=== PATIENT | female | born 1945 | race American Indian/Alaskan Native ===

== ENCOUNTER 2016-11-24 11:08 | Inpatient (IN) | payer OTHER ==
[2016-11-24] MEDS ORDERED: Sodium Chloride 0.9% 1,000 ML IV STA (11:54)
[2016-11-24] MEDS ORDERED: Labetalol 5 mg/ml Inj 20ML IVP STA ×3 (11:54→16:20)
[2016-11-24] MEDS ORDERED: Labetalol 5mg/ml (4ml) IVP STA (11:59)
[2016-11-24 12:20] LABS: BASO # 0.1 K/uL (0.0-0.2); BASO % 0.8 % (0.0-2.0); EOS # 0.1 K/uL (0.0-0.7); EOS % 1.1 % (0.0-4.0); HEMATOCRIT 33.9 % (34.0-47.0); LYMPH # 1.5 K/uL (1.0-4.3); LYMPH % 24.1 % (20.0-40.0); MEAN CELL VOLUME 85.9 fl (81.0-99.0); MEAN CORPUSCULAR HEMOGLOBIN 29.3 pg (27.0-31.0); MEAN CORPUSCULAR HGB CONC 34.1 g/dL (33.0-37.0); MEAN PLATELET VOLUME 8.7 fl (7.2-11.7); MONO # 0.5 K/uL (0.0-0.8); MONO % 7.6 % (0.0-10.0); NEUT # 4.2 K/uL (1.8-7.0); NEUT % 66.4 % (50.0-75.0); NRBC % 0.2 % (0.0-0.0); RED CELL DISTRIBUTION WIDTH 13.9 % (11.5-14.5); WHITE BLOOD COUNT 6.3 K/uL (4.8-10.8)
[2016-11-24 12:27] LABS: BILIRUBIN,TOTAL 0.3 mg/dl (0.2-1.3); CALCIUM 9.8 mg/dL (8.4-10.2); MAGNESIUM 2.2 MG/DL (1.6-2.3); POTASSIUM 4.4 MMOL/L (3.6-5.0); TOTAL PROTEIN 7.8 G/DL (6.3-8.2)
[2016-11-24 12:39] LABS: TROPONIN I 0.02 ng/mL (0.00-0.120)
[2016-11-24 12:52] LABS: PARTIAL THROMBOPLASTIN TIME 29.2 Seconds (25.6-37.1)
[2016-11-24 13:02] LABS: RBC URINE 2 /hpf (0-3); URINE BILIRUBIN NEGATIVE (NEGATIVE); URINE BLOOD NEGATIVE (NEGATIVE); URINE COLOR STRAW (YELLOW); URINE GLUCOSE (UA) NEG (Normal); URINE KETONE NEGATIVE (NEGATIVE); URINE LEUKOCYTE ESTERASE NEG Leu/uL (Negative); URINE PROTEIN >=500 mg/dL (NEGATIVE); URINE UROBILINOGEN 0.2-1.0 mg/dL (0.2-1.0); WBC URINE 1 /hpf (0-5)
--- NOTE | 2016-11-24 13:15 | ED PDOC ---
HPI: Chest Pain Time Seen by Provider: 11/24/16 11:52 Chief Complaint (Nursing): Chest Pain Chief Complaint (Provider): CP History Per: Patient History/Exam Limitations: no limitations Additional Complaint(s): 71yo F in ED for eval of chest pain noted last night to epigastric area radiating to left arm and associated difficulty with breathing lasting about 30 mins intermittent and returning throughout the night. Pt states that she recently came from [facility] to for medical care. pt has hx of HTN-is taking amlodipine and ASA. PT admits to lower back pain and knee pain x 1 year, b/l lower extremity swelling x 1 year which has worsened in past couple of months according to pt. PT admits to feeling subjective fevers nightly and dizziness. Past Medical History Reviewed: Historical Data, Nursing Documentation, Vital Signs Vital Signs: Last Vital Signs Temp 63 F L 11/24/16 14:15 Pulse 100 H 11/24/16 14:15 Resp 19 11/24/16 14:15 BP 225/98 H 11/24/16 14:19 Pulse Ox 100 11/24/16 14:48 - Medical History PMH: HTN - Family History Family History: States: No Known Family Hx - Home Medications Home Medications: Ambulatory Orders Medication Instructions Recorded Aspegic (Acetylsalicylate 1 tab PO DAILY 11/24/16 Dl-Lysine) Coveram (Perindopril/Amlodipine) 1 tab PO DAILY 11/24/16 Diamicron (Gliclazide) 1 tab PO DAILY 11/24/16 - Allergies Allergies/Adverse Reactions: Allergies Allergy/AdvReac Type Severity Reaction Status Date / Time No Known Allergies Allergy Verified 11/24/16 11:38 PAUL Risk Score for UA/NSTEMI - PAUL Risk Score Age > 64: YES 3 or more CAD Risk Factors: YES Known CAD (Stenosis greater than 50%): NO Aspirin use in past 7 days: YES Severe Angina: NO Positive Cardiac Marker: NO PAUL Score: 3 Risk %: 13% Curb-65 Severity Score - CURB-65 Severity Score Confusion: No Bun >19mg/dl (>7mmol/L): No Respiratory Rate greater than/equal to 30: No Systolic BP <90 or Diastolic BP less than/equal 60mmHg: No Age >64: Yes Curb-65 Score: 1 Percentage 30-day mortality: 2.7% Wells Criteria for PE - Wells Criteria for Pulmonary Embolism Clinical Signs and Symptoms of DVT: No P.E is #1 Diagnosis, or Equally Likely: No Heart Rate >100: No Immobilization at least 3 days;Surgery previous 4 weeks: No Previous, objectively diagnosed PE or DVT: No Hemoptysis: No Malignancy w/treatment within 6 months, or palliative: No Total Score: 0 Review of Systems ROS Statement: Except As Marked, All Systems Reviewed And Found Negative Constitutional: Negative for: Weakness, Malaise Cardiovascular: Positive for: Chest Pain Respiratory: Positive for: Shortness of Breath Physical Exam - Reviewed Nursing Documentation Reviewed: Yes Vital Signs Reviewed: Yes - Physical Exam Appears: Positive for: Non-toxic, No Acute Distress Head Exam: Positive for: ATRAUMATIC, NORMAL INSPECTION, NORMOCEPHALIC Skin: Positive for: Normal Color, Warm, DRY Eye Exam: Positive for: EOMI, Normal appearance, PERRL ENT: Positive for: Normal ENT Inspection Neck: Positive for: Normal, Painless ROM, Supple Cardiovascular/Chest: Positive for: Regular Rate, Rhythm, Chest Non Tender. Negative for: Edema, Gallop, JVD, Murmur, Bradycardia, Tachycardia, Ectopy, Friction Rub, Irregularly Irregular Respiratory: Positive for: CNT, Normal Breath Sounds Gastrointestinal/Abdominal: Positive for: Normal Exam, Bowel Sounds, Soft. Negative for: Tenderness Back: Positive for: Normal Inspection Extremity: Positive for: Normal ROM Neurologic/Psych: Positive for: Alert, Oriented - Laboratory Results Result Diagrams: 11/24/16 11:54 11/24/16 11:54 - ECG O2 Sat by Pulse Oximetry: 100 - Progress ED Course And Treament: PT will get cardiac workup. placed on machine deburrer and given labletol 10mg to being and re-eval . PT given fluids. MD Nithin made aware. However- pt upon further examination states that her chest pain begins in midsternal then radiates to her back. pt will get CTA to r/o dissection considering her BP is still very elevated. PT with elevated BNP-pt will get lasix 80mg IV. Pt will be admitted to [facility]. due to elevated creatine-pt is unable to get CTA with contrast. pt will get CT of chest with/out contrast. Re-evaluation Time: 13:18 Condition: Improving,but remains with symptoms (Pt diastolic has improved however systolic is still over 200, but decreasing with labetolol) Medical Decision Making Medical Decision Making: pt to be admitted to tele -floor for Chest pain and uncontrolled BP Disposition - Clinical Impression Clinical Impression: Chest pain, Hypertensive urgency - Patient ED Disposition Is Patient to be Admitted: Yes - Disposition Disposition Time: 14:59 Condition: STABLE
--- NOTE | 2016-11-24 13:24 | RAD ---
HISTORY: difficulty with breathing COMPARISON: Comparison is made to the previous study dated 12/25/2011 TECHNIQUE: Chest PA and lateral FINDINGS: LUNGS: No evidence of new infiltrate or consolidation in the lungs. PLEURA: No significant pleural effusion identified. No pneumothorax apparent. CARDIOVASCULAR: Normal. OSSEOUS STRUCTURES: No significant abnormalities. VISUALIZED UPPER ABDOMEN: Normal. OTHER FINDINGS: None. IMPRESSION: No active disease.
--- NOTE | 2016-11-24 17:15 | CT ---
PROCEDURE: CT Chest without contrast HISTORY: elevated BP and CP COMPARISON: 02/10/2012. CT thorax. November 24, 2016. PA and lateral chest radiographs. TECHNIQUE: Contiguous axial images were obtained through the chest without intravenous contrast enhancement. Sagittal and coronal reconstructions were performed. Radiation dose (DLP): 584.25 mGy-cm. This CT exam was performed using one or more of the following dose reduction techniques: Automated exposure control, adjustment of the mA and/or kV according to patient size, and/or use of iterative reconstruction technique. FINDINGS: LUNGS: Clear lungs. Visualized airway clear. No suspicious pulmonary nodules, masses or infiltrates. MEDIASTINUM: Unremarkable thoracic aorta. No aneurysm. Normal sized heart. Dilated main pulmonary artery 3.6 cm consistent with pulmonary arterial hypertension. No lymphadenopathy. PLEURA: No pleural fluid. No pneumothorax. BONES: No fracture. No destructive lesion. UPPER ABDOMEN: Grossly unremarkable. OTHER FINDINGS: Thyroid nodule, left lobe measuring 2.5 x 2.6 cm unchanged compared to the prior CT 02/10/2012. IMPRESSION: No acute findings related to/accounting for the clinical presentation. Additional benign and/or incidental findings described above.
[2016-11-24] MEDS ORDERED: Nitroglycerin 2% 15 INCH/30 GM TUBE TOP STA (18:07)
[2016-11-24] MEDS ORDERED: Dextrose 50% SYRINGE Inj (50 ml) IV PRN (19:11)
[2016-11-24] MEDS ORDERED: Glucagon Recombinant 1 mg Inj IM PRN (19:11)
--- NOTE | 2016-11-24 20:01 | CP.PCM.HP ---
History of Present Illness - History of Present Illness History of Present Illness: 71 yr old F brought to ED by son for intermittent chest pain at rest with radiation to left arm since yesterday. Patient denies SOB, nausea, vomiting, sweating, syncope or weakness. Patient reports associated intermittent dizziness , worsening bilateral lower extremity swelling and generalized body aches for 1 yr. She arrived from [facility] 3 weeks ago where she had been residing for the last 5 yrs. She has PMHx of HTN, NIDDM, CAD, gout, chronic lower back pain, chronic knee pain and constipation. She last saw a PMD in [facility] 1 month ago and has not been compliant with her prescribed medication because it was expensive. PMD: saw a PMD in [facility] 1 month ago, Last saw Dr. To at [facility] in 02/2012 PMHx: HTN, NIDDM, CAD, gout, chronic lower back pain, chronic knee pain and constipation ObHx: , x 10 PSurgHx: hysterectomy, lumbar procedure (laminectomy?), oral surgery SocHx: denies smoking, Etoh, drugs; arrived from [facility] where she resided for past 5 yrs with her children Meds: Amlodipine 10mg PO QD, Perindopril (ACEi) 10mg PO QD, Gliclazide ( sulfonylureas) 60mg PO QD Allergies: NKDA ER Course: VSS: BP 246/116 mmHg, P 70, T 98.9F, R19, O2 sat 100% on room air EKG: NSR with RBBB, CXR: No active disease, Chest CT: Dilated main pulmonary artery 3.6cm consistent with pulmonary arterial hypertension Labs: CBC wnl, BUN/Cr 41/1.8m rest of CMP wnl, Pro-BNP 2360, coags wnl, UA= urine protein >500 Meds administered: Labetolol 20mg IVP once, Labetolol 10mg IVP x 2, NS 1L bolus , Lasix 80mg IVP once Present on Admission - Present on Admission Any Indicators Present on Admission: Yes History of DVT/PE: No History of Uncontrolled Diabetes: Yes Urinary Catheter: No Decubitus Ulcer Present: No Review of Systems - Review of Systems All systems: reviewed and no additional remarkable complaints except (for what is mentioned in the HPI) Past Patient History - Past Social History Smoking Status: Never Smoked - CARDIAC Hx Cardiac Disorders: Yes - ENDOCRINE/METABOLIC Hx Diabetes Mellitus Type 2: Yes - PSYCHIATRIC Hx Substance Use: No Meds Allergies/Adverse Reactions: Allergies Allergy/AdvReac Type Severity Reaction Status Date / Time No Known Allergies Allergy Verified 11/24/16 11:38 Physical Exam - Constitutional Appears: Well, No Acute Distress - Head Exam Head Exam: ATRAUMATIC, NORMOCEPHALIC - Eye Exam Eye Exam: EOMI, PERRL - ENT Exam ENT Exam: Mucous Membranes Moist - Neck Exam Neck exam: Positive for: Full Rom. Negative for: Lymphadenopathy, Thyromegaly - Respiratory Exam Respiratory Exam: Clear to Auscultation Bilateral, NORMAL BREATHING PATTERN. absent: Rales, Rhonchi, Wheezes - Cardiovascular Exam Cardiovascular Exam: REGULAR RHYTHM, JVD, +S1, +S2. absent: Gallop, Rubs - GI/Abdominal Exam GI & Abdominal Exam: Normal Bowel Sounds, Soft (obese), Tenderness (mild diffuse ). absent: Distended - Extremities Exam Extremities exam: Positive for: full ROM, joint swelling (bilateral ankle swelling, darker skin discoloration consistent with chronic venous stasis), pedal edema (+ 1 up to knees). Negative for: calf tenderness, tenderness - Back Exam Back exam: absent: CVA tenderness (L), CVA tenderness (R) - Psychiatric Exam Psychiatric exam: Normal Affect, Normal Mood - Skin Skin Exam: Dry, Intact, Warm Results - Vital Signs Recent Vital Signs: Last Vital Signs Temp 97.8 F 11/24/16 18:12 Pulse 63 11/24/16 18:12 Resp 20 11/24/16 18:12 BP 217/73 H 11/24/16 18:12 Pulse Ox 99 11/24/16 18:12 - Labs Result Diagrams: 11/24/16 11:54 11/24/16 11:54 Assessment & Plan - Assessment and Plan (Free Text) Assessment: 71 yr old F admitted for chest pain and elevated BP. EKG NSR with RBBB, CXR wnl , ED tx labetolol IVP x 3, NS bolus, lasix 80mg IV once. She is noncompliant with her prescribed medication and has PMHx of HTN, NIDDM, CAD, gout, chronic lower back pain, chronic knee pain and constipation. She last saw a PMD in [place] 1 month ago. Patients is symptomatically stable , elevated BP has persisted. 1. Uncontrolled Hypertension -likely secondary to medication noncompliance -continue with home med: Amlodipine 10mg PO QD -start Clonidine 0.2 mg PO BID -home med ACEi held for now-as BUN/Cr was 41/1.8 with GFR 33 consistent with stage 3 CKD -monitor BP 2. Chest pain -acute, stable -likely secondary to uncontrolled HTN vs CHF -EKG: NSR with RBBB -Troponin negative x 1, proBNP 2360, Chest CT consistent with pulmonary arterial HTN (see full report) -CXR wnl -f/u serial troponins, echo -Cardiology consult appreciated-Dr. Xavier 3. Acute vs Chronic Kidney Disease -BUN/Cr was 41/1.8 with GFR 33 consistent with stage 3 CKD -patient has normal urine output -home med ACEi held for now -f/u BUN/Cr -will consider Nephrology consult 4. NIDDM -uncontrolled -Humulin SC ACHS moderate dose protocol -Hypoglycemia protocol -home med held (sulfonylurea -Glicazide 60mg PO QD) -Moderate carbohydrate/heart healthy diet -f/u HbA1c, lipid panel 5. DVT prophylaxis -Lovenox 30mg SC QD - Date & Time Date: 11/24/16 Time: 16:00
[2016-11-24] MEDS ORDERED: Pneumococcal 23-Valent Vaccine IM ONE (20:15)
[2016-11-24] MEDS: Insulin Regular 100 units/ml SC SCH (22:00)
[2016-11-25 07:03] LABS: HEMATOCRIT 31.9 % (34.0-47.0); MEAN CORPUSCULAR HEMOGLOBIN 28.7 pg (27.0-31.0); RED CELL DISTRIBUTION WIDTH 13.8 % (11.5-14.5)
[2016-11-25 07:49] LABS: CALCIUM 9.3 mg/dL (8.4-10.2); POTASSIUM 3.6 MMOL/L (3.6-5.0)
[2016-11-25] MEDS: Insulin Regular 100 units/ml SC SCH ×4 (09:02→21:40)
[2016-11-25] MEDS: Enoxaparin 30 mg Syringe SC SCH (09:03)
--- NOTE | 2016-11-25 11:07 | CP.PCM.PN ---
Subjective - Date & Time of Evaluation Date of Evaluation: 11/25/16 Time of Evaluation: 07:45 - Subjective Subjective: [employer] used: ID # [id number] dialect : Bengali ([place]) Patient seen and examined at bedside, laying in bed in no acute distress. Patient reports persistent bilateral lower extremity pain 4/10 pain scale. Chest pain has resolved, denies SOB, has normal urine and stool output. Denies dizziness. Reports lower extremity weakness and states she feels like her legs are going to give out every time she attempts to ambulate. Patient has no other concerns or complaints at this time. Objective - Vital Signs/Intake and Output Vital Signs (last 24 hours): Temp Pulse Resp BP Pulse Ox 97.9 F 61 18 151/78 H 99 11/25/16 09:00 11/25/16 09:02 11/25/16 09:00 11/25/16 09:02 11/25/16 09:00 Intake and Output: 11/25/16 11/25/16 06:59 18:59 Intake Total 200 Balance 200 - Medications Medications: Current Medications Amlodipine Besylate (Norvasc) 10 mg PO DAILY [facility] Last Admin: 11/25/16 09:02 Dose: 10 mg Atorvastatin Calcium (Lipitor) 80 mg PO DAILY [facility] Clonidine HCl (Catapres) 0.2 mg PO BID [facility] Last Admin: 11/25/16 09:02 Dose: 0.2 mg Dextrose (Dextrose 50% Inj) 0 ml IV STAT PRN; Protocol PRN Reason: Hyglycemia Protocol Dextrose (Glutose 15) 0 gm PO ONCE PRN; Protocol PRN Reason: Hypoglycemia Protocol Docusate Sodium (Colace) 100 mg PO BID PRN PRN Reason: Constipation Last Admin: 11/25/16 09:01 Dose: 100 mg Enoxaparin Sodium (Lovenox) 30 mg SC DAILY [facility] PRN Reason: Protocol Last Admin: 11/25/16 09:03 Dose: 30 mg Glucagon (Glucagen Diagnostic Kit) 0 mg IM STAT PRN; Protocol PRN Reason: Hypoglycemia Protocol Insulin Human Regular (Humulin R) 0 units SC ACHS [facility] PRN Reason: Protocol Last Admin: 11/25/16 09:02 Dose: 2 unit Lidocaine (Lidoderm) 2 ea TD DAILY [facility] - Labs Labs: 11/25/16 06:25 11/25/16 06:25 PT 10.3 Seconds (9.8-13.1) 11/24/16 12:13 INR 0.9 (0.9-1.2) 11/24/16 12:13 APTT 29.2 Seconds (25.6-37.1) 11/24/16 12:13 - Constitutional Appears: Well, No Acute Distress - Head Exam Head Exam: ATRAUMATIC, NORMOCEPHALIC - Eye Exam Eye Exam: EOMI, PERRL - ENT Exam ENT Exam: Mucous Membranes Moist - Neck Exam Neck Exam: Full ROM. absent: Lymphadenopathy - Respiratory Exam Respiratory Exam: Clear to Ausculation Bilateral, NORMAL BREATHING PATTERN. absent: Rales, Rhonchi - Cardiovascular Exam Cardiovascular Exam: REGULAR RHYTHM, +S1, +S2 - GI/Abdominal Exam GI & Abdominal Exam: Soft (obese), Normal Bowel Sounds. absent: Tenderness - Extremities Exam Extremities Exam: Pedal Edema (bilateral LE non-pitting edema with skin changes consistent with chronic venous insufficiency), Tenderness (bilateral lower extremity tenderness) - Back Exam Back Exam: absent: CVA tenderness (L), CVA tenderness (R) - Neurological Exam Neurological Exam: Alert, Awake, CN II-XII Intact, Oriented x3 - Psychiatric Exam Psychiatric exam: Normal Affect, Normal Mood - Skin Skin Exam: Dry, Intact, Warm Assessment and Plan - Assessment and Plan (Free Text) Assessment: 71 yr old F admitted for chest pain and elevated BP. EKG NSR with RBBB, CXR wnl , ED tx labetolol IVP x 3, NS bolus, lasix 80mg IV once. She is noncompliant with her prescribed medication and has PMHx of HTN, NIDDM, CAD, gout, chronic lower back pain, chronic knee pain and constipation. Patients is symptomatically stable , elevated BP has improved, has bilateral lower extremity swelling and pain persists, awaiting echo and PT eval. 1. Uncontrolled Hypertension -improved -likely secondary to medication noncompliance with possible CHF -continue with home med: Amlodipine 10mg PO QD -continue with Clonidine 0.2 mg PO BID -home med ACEi held for now-as BUN/Cr was 41/1.8 with GFR 33 consistent with stage 3 CKD -monitor BP 2. Chest pain -resolved -likely secondary to uncontrolled HTN with possible CHF -EKG: NSR with RBBB -Troponin negative x 2, proBNP 2360, Chest CT consistent with pulmonary arterial HTN (see full report) -CXR wnl -f/u Echo -Cardiology consult appreciated-Dr. Xavier 3. Acute vs Chronic Kidney Disease -stable, BUN/Cr was 35/1.7 this AM (from 41/1.8 with GFR 33 consistent with stage 3 CKD yesterday) -home med ACEi held for now -f/u BUN/Cr, SPEP, UPEP, renal US 4. Anemia -stable, H/H 10.5/31.9 -likely secondary to anemia of chronic disease (CKD) vs multiple myeloma vs GI blood loss -f/u Stool of occult blood, ESR, hemoglobinopathy, SPEP, UPEP 5. Bilateral knee pain and LE weakness -chronic, worsening -f/u b/l knee xray, PT eval -Lidoderm patch 6. NIDDM -uncontrolled -Humulin SC ACHS moderate dose protocol -Hypoglycemia protocol -home med held (sulfonylurea -Glicazide 60mg PO QD) -Moderate carbohydrate/heart healthy diet -lipids: Tri 162/chol 312/LDL 178/ HDL 47 ;ASCVD risk 50.9%, start Atorvastatin 80mg PO QD -f/u HbA1c 7. DVT prophylaxis -Lovenox 30mg SC QD
[2016-11-25] MEDS: Lidocaine 5% Patch TD SCH (13:26)
--- NOTE | 2016-11-25 15:33 | CARD ---
APPROVED REPORT EKG Measurement Heart [id number] <Conclusion> Normal sinus rhythm Right bundle branch block Abnormal ECG
--- NOTE | 2016-11-25 15:44 | RAD ---
PROCEDURE: Bilateral Knee Radiographs. HISTORY: r/o osteoarthritis, bilateral knee pain COMPARISON: None. FINDINGS: BONES: Right Knee: No acute fracture. Proliferative hypertrophic changes emanating from the femoral condyle and tibial plateau Left Knee: No acute fracture. Proliferative hypertrophic changes emanating from the femoral condyle and tibial plateau JOINTS: Right Knee: Mild degenerative changes Left knee: Degenerative changes more pronounced compared to the right side. Primarily affecting medial compartment and patellofemoral joint. SOFT TISSUES: Right Knee: Normal. Left Knee: Normal. JOINT EFFUSION: Right Knee: None. Left Knee: None. OTHER FINDINGS: None. IMPRESSION: Mild-moderate degenerative change. No acute findings
--- NOTE | 2016-11-25 17:45 | CON ---
DATE: 11/25/2016 REASON FOR CONSULTATION: Uncontrolled hypertension and congestive heart failure. The history was ta errol from the patient via her son who translated to me. The patient speaks local [place] dialect. HISTORY OF PRESENT ILLNESS: The patient is a 71-year-old with [place] female originally from [facility] who has history of hypertension and who arrived recently from [facility] upon on direct flight adlaid t took 7 hours that 3 weeks ago. The patient presented to the Emergency Room yesterday because of ch est discomfort in right epigastric area radiating to the left arm associated with shortness of breath . The patient has a history of hypertension and, according to the Emergency Room evaluation, the pat kyree was taking amlodipine and aspirin; however, according to her son, the patient is currently takin g no medications. SOCIAL HISTORY: The patient is a nonsmoker, nondrinker. MEDICATIONS: Clonidine 0.1 mg twice a day, Lipitor 80 mg once a day, Lovenox 30 mg subcutaneous once a day, Norvasc 10 mg once a day. REVIEW OF SYSTEMS: No nausea or vomiting, no fever or chills. PHYSICAL EXAMINATION: GENERAL: The patient is an elderly female who does not appear to be in any distress. VITAL SIGNS: Blood pressure 151/78, heart rate 61, temperature 97.9, respiration 18. HEENT: Normocephalic. NECK: No JVD. CHEST: Clear. HEART: S1, S2 regular. EXTREMITIES: 1+ nonpitting edema. LABORATORY DATA: Hemoglobin and hematocrit are 10.5 and 31.9. White count and platelet count are wi thin normal limits. SMA-7: Sodium 140, potassium 3.6, chloride 103, CO2 29, glucose 174, BUN 35, cr eatinine 1.7. PT, PTT within normal limits. EKG revealed sinus rhythm at a rate of 70. Right bundl e branch block. I did briefly review the transthoracic echocardiographic study which revealed moderate to severe conc entric left ventricular hypertrophy with normal systolic function and reduced diastolic compliance. ASSESSMENT: 1. Chest pain. Myocardial infarction is ruled out. Two sets of troponins are negative. 2. Uncontrolled hypertension. 3. Rule out deep venous thrombosis or pulmonary embolism in view of the patient's most recent [place] flight that lasted about 7 hours. RECOMMENDATIONS: Continue Lipitor, subcutaneous Lovenox, Norvasc and clonidine. Start aspirin 81 mg once a day. Obtain venous Doppler of the lower extremities. Obtain serum D-dimer and if elevated, proceed with CT angio of the chest. Sandoval Xavier MD cc: [id number] TT: 11/25/2016 17:44:43 Confirmation # [id number] Dictation # [id number] mn
--- NOTE | 2016-11-25 18:22 | CARD ---
APPROVED REPORT EXAM: Two-dimensional and M-mode echocardiogram with Doppler and color Doppler. Other Information Quality : GoodRhythm : NSR INDICATION Congestive Heart Failure 2D DIMENSIONS IVSd1.68 (0.7-1.1cm)LVDd3.78 (3.9-5.9cm) LVOT Diameter1.59 (1.8-2.4cm)PWd1.06 (0.7-1.1cm) IVSs1.47 (0.8-1.2cm)LVDs2.87 (2.5-4.0cm) FS (%) 24.0 %PWs1.08 (0.8-1.2cm) M-Mode DIMENSIONS Left Atrium (MM)4.97 (2.5-4.0cm)IVSd1.18 (0.7-1.1cm) Aortic Root2.88 (2.2-3.7cm)LVDd4.47 (4.0-5.6cm) Aortic Cusp Exc.1.82 (1.5-2.0cm)PWd1.03 (0.7-1.1cm) IVSs1.82 cmFS (%) 47 % LVDs2.35 (2.0-3.8cm)PWs1.71 cm Mitral Valve MV E Wuebtuji85.9cm/sMV DECEL [id number] A Yfpdukkk590.2cm/s MV EEZ12diG/A ratio0.6MVA (PHT)2.23cm2 TDI Lateral E' Peak V3.99cm/sMedial E' Peak V2.77cm/sE/Lateral E'14.8 E/Medial E'21.3 Pulmonary Valve PV Peak Uewhcmhx766.6cm/s LEFT VENTRICLE The left ventricle is normal size. There is at least moderate concentric left ventricular hypertrophy on the 2D study. The left ventricular function is normal. The left ventricular ejection fraction is - 70%. There is normal LV segmental wall motion. Transmitral Doppler flow pattern is Grade I-abnormal relaxation pattern. No left ventricle thrombus noted on this study. There is no ventricular septal defect visualized. There is no left ventricular aneurysm. There is no mass noted in the left ventricle. RIGHT VENTRICLE The right ventricle is normal size. The right ventricle is mildly hypertrophied. The right ventricular systolic function is normal. ATRIA The left atrium is mildly dilated. There is no thrombus suspected in the left atrium. The right atrium size is normal. The interatrial septum is intact with no evidence for an atrial septal defect. AORTIC VALVE The aortic valve is normal in structure and function. There is very trivial aortic regurgitation. There is no aortic valvular stenosis. MITRAL VALVE The mitral valve is normal in structure and function. There is no evidence of mitral valve prolapse. There is no mitral valve stenosis. There is no mitral valve regurgitation noted. TRICUSPID VALVE The tricuspid valve is normal in structure and function. There is no tricuspid valve regurgitation noted. There is no tricuspid valve prolapse or vegetation. There is no tricuspid valve stenosis. PULMONIC VALVE The pulmonary valve is normal in structure and function. There is no pulmonic valvular regurgitation. GREAT VESSELS The aortic root is normal in size. The IVC was not visualized. PERICARDIAL EFFUSION The pericardium appears normal. There is no pleural effusion. <Conclusion> The left ventricle is normal size. There is at least moderate concentric left ventricular hypertrophy on the 2D study. The left ventricular function is normal. The left ventricular ejection fraction is - 70%. The left atrium is mildly dilated. The aortic, mitral and tricuspid valves are normal. There is very trivial aortic regurgitation.
--- NOTE | 2016-11-25 18:29 | US ---
PROCEDURE: Bilateral lower extremity venous duplex Doppler. HISTORY: r/o DVT COMPARISON: None available. TECHNIQUE: Bilateral common femoral, superficial femoral, popliteal and posterior tibial veins were evaluated. Flow was assessed with color Doppler, compressibility, assessment of phasic flow and augmentation response. FINDINGS: COMMON FEMORAL VEIN: Right CFV: Unremarkable. Left CFV: Unremarkable. SUPERFICIAL FEMORAL VEIN: Right SFV: Unremarkable. Left SFV: Unremarkable. POPLITEAL VEIN: Right Popliteal: Unremarkable. Left Popliteal: Unremarkable. POSTERIOR TIBIAL VEIN: Right PTV: Unremarkable. Left PTV: Unremarkable. OTHER FINDINGS: Left popliteal fossa cystic structure measures 4.3 x 0.8 x 1.5 centimeter likely represent Leone's cyst IMPRESSION: No evidence of deep venous thrombosis. Left popliteal fossa cystic structure likely represent Leone cyst measures 4.3 x 0.8 x 1.5 centimeter.
--- NOTE | 2016-11-25 18:52 | US ---
PROCEDURE: Ultrasound of the Kidneys HISTORY: r/o hydronephrosis COMPARISON: None available. TECHNIQUE: Sonogram of the kidneys. FINDINGS: RIGHT KIDNEY: Measures: 8.1 x 3.8 x 3.4 cm. The right kidney is echogenic. No stone, solid mass lesion or hydronephrosis visualized. LEFT KIDNEY: Measures: 10.4 x 3.8 x 4.8 cm. The left kidney is also echogenic. There is cyst seen at the upper pole of the left kidney measures 2.6 x 2.2 x 2.2 centimeter. No stone, solid mass lesion or hydronephrosis visualized. OTHER FINDINGS: None. IMPRESSION: No evidence of hydronephrosis. Echogenic kidneys suggestive of medical renal disease. 2.6 centimeter cyst at the upper pole of the left kidney.
--- NOTE | 2016-11-26 06:39 | CP.PCM.PN ---
Subjective - Date & Time of Evaluation Date of Evaluation: 11/26/16 Time of Evaluation: 10:05 - Subjective Subjective: Patient seen and examined at bedside. Denies chest pain, SOB, dizziness. Bilateral lower extremity pain persists, she has normal urine and stool output. Has no concerns or complaints at this time. Objective - Vital Signs/Intake and Output Vital Signs (last 24 hours): Temp Pulse Resp BP Pulse Ox 98.1 F 70 18 172/91 H 99 11/26/16 04:59 11/26/16 04:59 11/26/16 04:59 11/26/16 04:59 11/26/16 04:59 Intake and Output: 11/25/16 11/26/16 18:59 06:59 Intake Total 1940 Balance 1940 - Medications Medications: Current Medications Amlodipine Besylate (Norvasc) 10 mg PO DAILY [facility] Last Admin: 11/25/16 09:02 Dose: 10 mg Aspirin (Aspirin Chewable) 81 mg PO DAILY [facility] Last Admin: 11/25/16 13:25 Dose: 81 mg Atorvastatin Calcium (Lipitor) 80 mg PO DAILY [facility] Last Admin: 11/25/16 13:25 Dose: 80 mg Clonidine HCl (Catapres) 0.2 mg PO BID [facility] Last Admin: 11/25/16 16:35 Dose: 0.2 mg Dextrose (Dextrose 50% Inj) 0 ml IV STAT PRN; Protocol PRN Reason: Hyglycemia Protocol Dextrose (Glutose 15) 0 gm PO ONCE PRN; Protocol PRN Reason: Hypoglycemia Protocol Docusate Sodium (Colace) 100 mg PO BID PRN PRN Reason: Constipation Last Admin: 11/25/16 09:01 Dose: 100 mg Enoxaparin Sodium (Lovenox) 30 mg SC DAILY [facility] PRN Reason: Protocol Last Admin: 11/25/16 09:03 Dose: 30 mg Glucagon (Glucagen Diagnostic Kit) 0 mg IM STAT PRN; Protocol PRN Reason: Hypoglycemia Protocol Insulin Human Regular (Humulin R) 0 units SC ACHS [facility] PRN Reason: Protocol Last Admin: 11/25/16 21:40 Dose: Not Given Lidocaine (Lidoderm) 2 ea TD DAILY [facility] Last Admin: 11/25/16 13:26 Dose: 2 ea - Labs Labs: 11/25/16 06:25 11/25/16 06:25 PT 10.3 Seconds (9.8-13.1) 11/24/16 12:13 INR 0.9 (0.9-1.2) 11/24/16 12:13 APTT 29.2 Seconds (25.6-37.1) 11/24/16 12:13 - Constitutional Appears: Well, No Acute Distress - Head Exam Head Exam: ATRAUMATIC, NORMOCEPHALIC - Eye Exam Eye Exam: EOMI, PERRL - ENT Exam ENT Exam: Mucous Membranes Moist - Neck Exam Neck Exam: Full ROM. absent: Lymphadenopathy - Respiratory Exam Respiratory Exam: Clear to Ausculation Bilateral, NORMAL BREATHING PATTERN - Cardiovascular Exam Cardiovascular Exam: REGULAR RHYTHM, +S1, +S2 - GI/Abdominal Exam GI & Abdominal Exam: Soft (obese), Normal Bowel Sounds. absent: Tenderness - Extremities Exam Extremities Exam: Full ROM, Pedal Edema (non pitting, with distal skin discoloration consistent with chronic venous insufficiency), Tenderness ( bilateral LE , worse on left knee circumferentially) - Back Exam Back Exam: absent: CVA tenderness (L), CVA tenderness (R) - Neurological Exam Neurological Exam: Alert, Awake, CN II-XII Intact - Psychiatric Exam Psychiatric exam: Normal Affect, Normal Mood - Skin Skin Exam: Dry, Intact Assessment and Plan - Assessment and Plan (Free Text) Assessment: 71 yr old F admitted for chest pain and elevated BP, with PMHx of HTN, NIDDM, CAD, gout, chronic lower back pain, chronic knee pain and constipation. Patients is symptomatically stable , BP remained elevated, bilateral lower extremity swelling and pain persists, Cardiology on [id number] elevated; V/Q scan recommended , PT will evaluate after VQ scan is done. 1. Uncontrolled Hypertension -remains elevated, stable -likely secondary to medication noncompliance -continue with home med: Amlodipine 10mg PO QD -continue with Clonidine 0.2 mg PO BID -home med ACEi held for now-as BUN/Cr is 33/1.8 with GFR 33 consistent with stage 3 CKD -monitor BP 2. Chest pain -resolved -likely secondary to uncontrolled HTN -EKG: NSR with RBBB -Troponin negative x 2, proBNP 2360, Chest CT consistent with pulmonary arterial HTN (see full report) -CXR wnl -Echo: normal LV size, LVEF 70% -D-Dimer 0.87 -Cardiology consult appreciated-Dr. Xavier: D-dimer, if elevated VQ scan, Duplex LE, continue with Lipitor, Lovenox SC, Norvasc, Clonidine, ASA 3. Chronic Kidney Disease stage 3B (GFR 30-44 mL/min) -stable, BUN/Cr 33/1.8 GFR 33 this AM, consistent with Stage 3B CKD -home med ACEi held for now -f/u BUN/Cr, SPEP, UPEP -Renal US: No hydronephrosis, echogenic kidneys suggestive of medical renal disease (see full report) 4. Anemia -stable, H/H 10.6/32.2 -likely secondary to anemia of chronic disease (CKD) vs multiple myeloma vs GI blood loss -f/u Stool of occult blood, hemoglobinopathy, SPEP, UPEP 5. Bilateral knee pain and LE weakness -chronic, worsening -b/l knee xray: mild-moderate degenerative changes, no acute findings -b/l LE duplex: left popliteal fossa cystic structure likely represents Bakers Cyst measuring 4.3x0.8x1.5 -awaiting PT eval: will be done after V/Q scan -Pain management: Lidoderm patch, Tylenol prn, tramadol prn, will consider steroid joint injection to left knee 6. NIDDM -uncontrolled, HbA1c 7.0 -Humulin SC ACHS moderate dose protocol -Hypoglycemia protocol -home med held (sulfonylurea -Glicazide 60mg PO QD) -Moderate carbohydrate/heart healthy diet -lipids: Tri 162/chol 312/LDL 178/ HDL 47 ;ASCVD risk 50.9%, start Atorvastatin 80mg PO QD -will consider PO meds 7. DVT prophylaxis -Lovenox 30mg SC QD
[2016-11-26 06:47] LABS: HEMATOCRIT 32.2 % (34.0-47.0); MEAN CELL VOLUME 87.2 fl (81.0-99.0); MEAN CORPUSCULAR HEMOGLOBIN 28.7 pg (27.0-31.0); MEAN CORPUSCULAR HGB CONC 32.9 g/dL (33.0-37.0); RED CELL DISTRIBUTION WIDTH 13.7 % (11.5-14.5)
[2016-11-26 06:53] LABS: CALCIUM 9.3 mg/dL (8.4-10.2); POTASSIUM 3.8 MMOL/L (3.6-5.0)
[2016-11-26] MEDS: Insulin Regular 100 units/ml SC SCH ×4 (08:30→21:55)
[2016-11-26] MEDS: Lidocaine 5% Patch TD SCH (08:32)
[2016-11-26] MEDS: Enoxaparin 30 mg Syringe SC SCH (08:34)
--- NOTE | 2016-11-26 16:02 | PN ---
DATE: 11/26/2016 There is no reported chest pain or ventricular arrhythmia. PHYSICAL EXAMINATION: VITAL SIGNS: Blood pressure 175/91, heart rate 59, temperature 97.7, respirations 18. HEENT: Pale conjunctivae. CHEST: Clear. HEART: S1, S2 regular. EXTREMITIES: 1+ pitting edema. LABORATORIES: Hemoglobin and hematocrit 10.6 and 32.2. White count and platelet count are within no rmal limit. Today's BUN and creatinine are 33 and 1.8 respectively. Glucose of 157. Venous Doppler of the lower extremities, no evidence of DVT, left popliteal ____ cystic structure likely represents a Leone cyst. Ventilation-perfusion scan is performed, but the report is still pending. Official e chocardiograph study reported ejection fraction in the range of 70%, moderate concentric LVH, very tr ivial aortic regurgitation. ASSESSMENT: 1. Chest pain. Myocardial infarction is ruled out. 2. Hypertension. 3. Chronic renal insufficiency. RECOMMENDATIONS: Continue current aspirin, clonidine, Lipitor, subcutaneous Lovenox, and Norvasc. I will follow up ventilation-perfusion scan and if negative, no further cardiac workup will be indicat ed. Sandoval Xavier MD cc: [id number] TT: 11/26/2016 16:01:39 Confirmation # [id number] Dictation # [id number]
--- NOTE | 2016-11-26 16:18 | NM ---
COMPARISON: November 25, 2016. Lower extremity duplex venous sonography November 24, 2016 CT thorax TECHNIQUE: 36.7 mCi technetium 99-m DTPA aerosol. 5.9 mCI technetium 99-m MAA administered intravenously. FINDINGS: VENTILATION COMPONENT: Normal. PERFUSION COMPONENT: Heterogeneous distribution of radionuclide. No geographic, segmental, lobar abnormalities apparent on the present examination. IMPRESSION: Low probability ventilation perfusion scan for pulmonary embolism.
[2016-11-26] MEDS ORDERED: Lidocaine 2% Inj (20ml) ONE (17:20)
[2016-11-26] MEDS: Lidocaine 2% Inj (20ml) IJ ONE ×2 (18:02→19:14)
[2016-11-26] MEDS: Triamcinolone Acetonide 40 mg/mL Inj IM ONE ×2 (18:02→19:14)
--- NOTE | 2016-11-26 22:58 | PCM.PROC ---
Procedures Attestation:: I certify that I have explained the specified Operation(s) or Procedure(s), risks, benefits and reasonable alternatives to the Patient and/or other person responsible. The opportunity was given to ask questions and all questions answered - Joint Aspiration/Injection Joint #1 Consent Obtained: Written Consent Time Out Performed: Yes Side of Body: Left Skin Prep: Chlorprep Local Anesthesia Used: Lidocaine 2% Amount of Anesthesia Used: 4 Needle Size Used: 22 G Medication Injected: Triamcinolone Acetate Amout of Medication Injected: 1 Patient Tolorated Procedure: Well Complications: None
[2016-11-27 02:49] LABS: HEMATOCRIT 31.6 % (35.0-45.0); HEMOGLOBIN 10.3 g/dL (11.7-15.5); RDW 13.9 % (11.0-15.0)
[2016-11-27] MEDS: Insulin Regular 100 units/ml SC SCH ×4 (06:54→23:40)
[2016-11-27] MEDS: GlipiZIDE 10 mg SR Tab PO SCH (08:28)
[2016-11-27] MEDS: Enoxaparin 30 mg Syringe SC SCH (08:29)
[2016-11-27] MEDS: Lidocaine 5% Patch TD SCH (08:29)
--- NOTE | 2016-11-27 10:44 | CP.PCM.PN ---
Subjective - Date & Time of Evaluation Date of Evaluation: 11/27/16 Time of Evaluation: 08:30 - Subjective Subjective: Patient seen and examined at bedside, laying in bed in no acute distress. Reports her left lower extremity pain has improved. Had not had a bowel movement since yesterday, has normal urine output. Is tolerating PO diet, had a headache last night that resolved, has mild intermittent periorbital pressure. No other concerns or complaints at this time. Objective - Vital Signs/Intake and Output Vital Signs (last 24 hours): Temp Pulse Resp BP Pulse Ox 97.6 F 68 20 178/79 H 100 11/27/16 08:00 11/27/16 10:28 11/27/16 08:00 11/27/16 10:28 11/27/16 08:00 Intake and Output: 11/27/16 11/27/16 06:59 18:59 Intake Total 1650 Balance 1650 - Medications Medications: Current Medications Acetaminophen (Tylenol 325mg Tab) 650 mg PO Q6 PRN PRN Reason: Pain, Mild (1-3) Last Admin: 11/27/16 08:49 Dose: 650 mg Amlodipine Besylate (Norvasc) 10 mg PO DAILY [facility] Last Admin: 11/27/16 08:30 Dose: 10 mg Aspirin (Aspirin Chewable) 81 mg PO DAILY [facility] Last Admin: 11/27/16 08:28 Dose: 81 mg Atorvastatin Calcium (Lipitor) 80 mg PO DAILY [facility] Last Admin: 11/27/16 08:29 Dose: 80 mg Clonidine HCl (Catapres) 0.2 mg PO BID [facility] Dextrose (Dextrose 50% Inj) 0 ml IV STAT PRN; Protocol PRN Reason: Hyglycemia Protocol Dextrose (Glutose 15) 0 gm PO ONCE PRN; Protocol PRN Reason: Hypoglycemia Protocol Docusate Sodium (Colace) 100 mg PO BID PRN PRN Reason: Constipation Last Admin: 11/25/16 09:01 Dose: 100 mg Enoxaparin Sodium (Lovenox) 30 mg SC DAILY [facility] PRN Reason: Protocol Last Admin: 11/27/16 08:29 Dose: 30 mg Glipizide (Glucotrol Xl) 10 mg PO BRK [facility] Last Admin: 11/27/16 08:28 Dose: 10 mg Glucagon (Glucagen Diagnostic Kit) 0 mg IM STAT PRN; Protocol PRN Reason: Hypoglycemia Protocol Hydralazine HCl (Apresoline) 10 mg PO QID [facility] Last Admin: 11/27/16 09:47 Dose: 10 mg Insulin Human Regular (Humulin R) 0 units SC ACHS [facility] PRN Reason: Protocol Last Admin: 11/27/16 06:54 Dose: 3 unit Lidocaine (Lidoderm) 2 ea TD DAILY [facility] Last Admin: 11/27/16 08:29 Dose: 2 ea Tramadol HCl (Ultram) 50 mg PO Q6 PRN PRN Reason: Pain, moderate (4-7) - Labs Labs: 11/26/16 05:45 11/26/16 05:45 PT 10.3 Seconds (9.8-13.1) 11/24/16 12:13 INR 0.9 (0.9-1.2) 11/24/16 12:13 APTT 29.2 Seconds (25.6-37.1) 11/24/16 12:13 - Constitutional Appears: Well, No Acute Distress - Head Exam Head Exam: ATRAUMATIC, NORMOCEPHALIC - Eye Exam Eye Exam: EOMI, PERRL - ENT Exam ENT Exam: Mucous Membranes Moist - Neck Exam Neck Exam: Full ROM. absent: Lymphadenopathy - Respiratory Exam Respiratory Exam: Clear to Ausculation Bilateral, NORMAL BREATHING PATTERN - Cardiovascular Exam Cardiovascular Exam: REGULAR RHYTHM, +S1, +S2 - GI/Abdominal Exam GI & Abdominal Exam: Soft (obese). absent: Distended, Tenderness - Extremities Exam Extremities Exam: Full ROM, Tenderness (b/l LE, improved on left since joint injection yesterday) - Back Exam Back Exam: absent: CVA tenderness (L), CVA tenderness (R) - Neurological Exam Neurological Exam: Alert, Awake, CN II-XII Intact, Oriented x3 - Psychiatric Exam Psychiatric exam: Normal Affect, Normal Mood - Skin Skin Exam: Dry, Intact, Warm Assessment and Plan - Assessment and Plan (Free Text) Assessment: 71 yr old F admitted for chest pain and elevated BP, with PMHx of HTN, NIDDM, CAD, gout, chronic lower back pain, chronic knee pain and constipation. Patients BP remains elevated, bilateral lower extremity swelling and pain has improved but persists, Cardiology on [id number] elevated; V/Q scan demonstrated low probability for PE, PT will evaluate. 1. Uncontrolled Hypertension -remains elevated, stable -likely secondary to medication noncompliance -continue with home med: Amlodipine 10mg PO QD -continue with Clonidine 0.2 mg PO BID -start Hydralazine 10mg PO QID -home med ACEi held for now-as BUN/Cr is 33/1.8 with GFR 33 consistent with stage 3 CKD -monitor BP 2. Chest pain -resolved -likely secondary to uncontrolled HTN -EKG: NSR with RBBB -Troponin negative x 2, proBNP 2360, Chest CT consistent with pulmonary arterial HTN (see full report) -CXR wnl -Echo: normal LV size, LVEF 70% -D-Dimer 0.87, VQ scan low probability for PE -Cardiology consult appreciated-Dr. Xavier: D-dimer, VQ scan low probability for PE, continue with Lipitor, Lovenox SC, Norvasc, Clonidine, ASA 3. Chronic Kidney Disease stage 3B (GFR 30-44 mL/min) -stable, BUN/Cr 33/1.8 GFR 33 this AM, consistent with Stage 3B CKD -home med ACEi held for now -f/u BUN/Cr, SPEP, UPEP -Renal US: No hydronephrosis, echogenic kidneys suggestive of medical renal disease (see full report) 4. Anemia -stable, H/H 10.6/32.2 -likely secondary to anemia of chronic disease (CKD) vs multiple myeloma vs GI blood loss -f/u Stool of occult blood, hemoglobinopathy, SPEP, UPEP 5. Bilateral knee pain and LE weakness -left pain improved s/p steroid injection, chronic -b/l knee xray: mild-moderate degenerative changes, no acute findings -b/l LE duplex: left popliteal fossa cystic structure likely represents Bakers Cyst measuring 4.3x0.8x1.5 -awaiting PT eval: will be done today -Pain management: Lidoderm patch, Tylenol prn, tramadol prn 6. NIDDM -uncontrolled, HbA1c 7.0 -Humulin SC ACHS moderate dose protocol -Hypoglycemia protocol -home med held (sulfonylurea -Glicazide 60mg PO QD) -Moderate carbohydrate/heart healthy diet -lipids: Tri 162/chol 312/LDL 178/ HDL 47 ;ASCVD risk 50.9%, start Atorvastatin 80mg PO QD -Start Glipizide 10 mg PO QD before breakfast 7. DVT prophylaxis -Lovenox 30mg SC QD
[2016-11-27] MEDS ORDERED: POLYETHYLENE GLYCOL 3350 17 GM/Dose PACKET PO ONE (12:44)
[2016-11-27] MEDS: Docusate-Senna 50 mg-8.6 mg Tab PO SCH (21:08)
[2016-11-28] MEDS: Insulin Regular 100 units/ml SC SCH ×4 (06:35→22:16)
[2016-11-28] MEDS: GlipiZIDE 10 mg SR Tab PO SCH (08:40)
[2016-11-28] MEDS: Lidocaine 5% Patch TD SCH (09:35)
[2016-11-28] MEDS: Enoxaparin 30 mg Syringe SC SCH (09:36)
--- NOTE | 2016-11-28 10:14 | CP.PCM.PN ---
Subjective - Date & Time of Evaluation Date of Evaluation: 11/28/16 Time of Evaluation: 08:25 - Subjective Subjective: [employer] Hand # [id number] (Nepali - dialect) Patient was seen and examined at bedside, sitting in chair in no acute distress. Denies chest pain, weakness, SOB or dizziness. States she feels her BP is not controlled as she can feel something (which she cannot describe) when it is elevated. Reports normal urine output, no bowel movement in a few days. Tolerating PO diet. Had a discussion at length about the BP medications and the importance of compliance , pt demonstrated understanding by asking questions. Has no other concerns or complaints at this time. Objective - Vital Signs/Intake and Output Vital Signs (last 24 hours): Temp Pulse Resp BP Pulse Ox 97.9 F 50 L 18 156/76 H 100 11/28/16 07:55 11/28/16 09:59 11/28/16 07:55 11/28/16 09:57 11/28/16 07:55 Intake and Output: 11/28/16 11/28/16 06:59 18:59 Intake Total 360 Balance 360 - Medications Medications: Current Medications Acetaminophen (Tylenol 325mg Tab) 650 mg PO Q6 PRN PRN Reason: Pain, Mild (1-3) Last Admin: 11/27/16 08:49 Dose: 650 mg Amlodipine Besylate (Norvasc) 10 mg PO DAILY [facility] Last Admin: 11/28/16 09:55 Dose: 10 mg Aspirin (Aspirin Chewable) 81 mg PO DAILY [facility] Last Admin: 11/28/16 09:40 Dose: 81 mg Atorvastatin Calcium (Lipitor) 80 mg PO DAILY [facility] Last Admin: 11/28/16 09:34 Dose: 80 mg Clonidine HCl (Catapres) 0.2 mg PO BID [facility] Last Admin: 11/28/16 09:59 Dose: Not Given Clonidine HCl (Catapres) 0.1 mg PO BID [facility] Dextrose (Dextrose 50% Inj) 0 ml IV STAT PRN; Protocol PRN Reason: Hyglycemia Protocol Dextrose (Glutose 15) 0 gm PO ONCE PRN; Protocol PRN Reason: Hypoglycemia Protocol Docusate Sodium (Colace) 100 mg PO BID [facility] Last Admin: 11/28/16 09:34 Dose: 100 mg Enoxaparin Sodium (Lovenox) 30 mg SC DAILY [facility] PRN Reason: Protocol Last Admin: 11/28/16 09:36 Dose: 30 mg Glipizide (Glucotrol Xl) 10 mg PO BRK [facility] Last Admin: 11/28/16 08:40 Dose: 10 mg Glucagon (Glucagen Diagnostic Kit) 0 mg IM STAT PRN; Protocol PRN Reason: Hypoglycemia Protocol Hydralazine HCl (Apresoline) 10 mg PO QID [facility] Last Admin: 11/28/16 09:57 Dose: 10 mg Insulin Human Regular (Humulin R) 0 units SC ACHS [facility] PRN Reason: Protocol Last Admin: 11/28/16 06:35 Dose: Not Given Lactulose (Enulose) 20 gm PO DAILY [facility] PRN Reason: Constipation Lidocaine (Lidoderm) 2 ea TD DAILY [facility] Last Admin: 11/28/16 09:35 Dose: 2 ea Lisinopril (Zestril) 5 mg PO DAILY [facility] Senna/Docusate Sodium (Senokot S 50 Mg-8.6 Mg) 2 tab PO HS [facility] Last Admin: 11/27/16 21:08 Dose: 2 tab Tramadol HCl (Ultram) 50 mg PO Q6 PRN PRN Reason: Pain, moderate (4-7) Last Admin: 11/27/16 12:44 Dose: 50 mg Tramadol HCl (Ultram) 50 mg PO Q12 [facility] Last Admin: 11/28/16 09:42 Dose: 50 mg - Labs Labs: 11/26/16 05:45 11/26/16 05:45 PT 10.3 Seconds (9.8-13.1) 11/24/16 12:13 INR 0.9 (0.9-1.2) 11/24/16 12:13 APTT 29.2 Seconds (25.6-37.1) 11/24/16 12:13 - Constitutional Appears: Well, No Acute Distress - Head Exam Head Exam: ATRAUMATIC, NORMOCEPHALIC - Eye Exam Eye Exam: EOMI, PERRL - ENT Exam ENT Exam: Mucous Membranes Moist - Neck Exam Neck Exam: Full ROM. absent: Lymphadenopathy - Respiratory Exam Respiratory Exam: Clear to Ausculation Bilateral, NORMAL BREATHING PATTERN - Cardiovascular Exam Cardiovascular Exam: REGULAR RHYTHM, +S1, +S2 - GI/Abdominal Exam GI & Abdominal Exam: Soft (obese), Normal Bowel Sounds. absent: Tenderness - Extremities Exam Extremities Exam: Full ROM, Pedal Edema (non pitting), Tenderness (bilateral lower extremities) - Back Exam Back Exam: absent: CVA tenderness (L), CVA tenderness (R) - Neurological Exam Neurological Exam: Alert, Awake, CN II-XII Intact, Normal Gait, Oriented x3 - Psychiatric Exam Psychiatric exam: Normal Affect, Normal Mood - Skin Skin Exam: Dry, Intact, Normal Color, Warm Assessment and Plan - Assessment and Plan (Free Text) Assessment: 71 yr old F admitted for chest pain and elevated BP, with PMHx of HTN, NIDDM, CAD, gout, chronic lower back pain, chronic knee pain and constipation. Patients BP remains elevated, bilateral lower extremity swelling and pain has improved but persists, Cardiology on [id number]-N-[id number] elevated; V/Q scan demonstrated low probability for PE, PT will evaluate. BP meds currently being adjusted, BP elevated overnight. 1. Uncontrolled Hypertension -remains elevated with bradycardia, pt received 1 dose Lisinopril 5mg overnight -likely secondary to medication noncompliance -continue with home med: Amlodipine 10mg PO QD -tapered Clonidine 0.1 mg PO BID -continue Hydralazine 10mg PO QID -BUN/Cr is 33/1.8 with GFR 33 consistent with stage 3 CKD -monitor BP 2. Chest pain -resolved -likely secondary to uncontrolled HTN -EKG: NSR with RBBB -Troponin negative x 2, proBNP 2360, Chest CT consistent with pulmonary arterial HTN (see full report) -CXR wnl -Echo: normal LV size, LVEF 70% -D-Dimer 0.87, VQ scan low probability for PE -Cardiology consult appreciated-Dr. Xavier: D-dimer, VQ scan low probability for PE, continue with Lipitor, Lovenox SC, Norvasc, Clonidine, ASA 3. Chronic Kidney Disease stage 3B (GFR 30-44 mL/min) -stable, BUN/Cr 33/1.8 GFR 33 (, consistent with Stage 3B CKD -home med ACEi held for now -f/u BUN/Cr, SPEP, UPEP -Renal US: No hydronephrosis, echogenic kidneys suggestive of medical renal disease (see full report) 4. Anemia -stable, H/H 10.6/32.2 (11/26/16) -likely secondary to anemia of chronic disease (CKD) vs multiple myeloma vs GI blood loss -f/u Stool of occult blood, hemoglobinopathy, SPEP, UPEP 5. Bilateral knee pain and LE weakness -left pain improved s/p steroid injection, chronic -b/l knee xray: mild-moderate degenerative changes, no acute findings -b/l LE duplex: left popliteal fossa cystic structure likely represents Bakers Cyst measuring 4.3x0.8x1.5 -PT eval: continue PT -Pain management: Lidoderm patch, Tylenol prn, tramadol prn 6. NIDDM -uncontrolled, HbA1c 7.0 -Humulin SC ACHS moderate dose protocol -Hypoglycemia protocol -home med held (sulfonylurea -Glicazide 60mg PO QD) -Moderate carbohydrate/heart healthy diet -lipids: Tri 162/chol 312/LDL 178/ HDL 47 ;ASCVD risk 50.9%, start Atorvastatin 80mg PO QD -Start Glipizide 10 mg PO QD before breakfast 7. DVT prophylaxis -Lovenox 30mg SC QD
[2016-11-28 11:54] LABS: CALCIUM 9.5 mg/dL (8.4-10.2); POTASSIUM 4.3 MMOL/L (3.6-5.0)
[2016-11-28] MEDS: Docusate-Senna 50 mg-8.6 mg Tab PO SCH (22:08)
[2016-11-29] MEDS: Insulin Regular 100 units/ml SC SCH ×4 (08:00→22:12)
[2016-11-29] MEDS: Enoxaparin 30 mg Syringe SC SCH (08:51)
[2016-11-29] MEDS: Lidocaine 5% Patch TD SCH (08:56)
[2016-11-29] MEDS: GlipiZIDE 10 mg SR Tab PO SCH (08:56)
--- NOTE | 2016-11-29 11:33 | CP.PCM.PN ---
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 patient lying in bed in NAD. States she is sleepy from getting interrupted sleep last night. Patient currently denies headache, acute change in vision, chest pain, weakness, SOB or dizziness. Normal voiding. Tolerating PO diet.Remains to have uncontrolled blood pressure 180/100s. Objective - Vital Signs/Intake and Output Vital Signs (last 24 hours): Temp Pulse Resp BP Pulse Ox 98.2 F 61 18 187/70 H 99 11/29/16 07:53 11/29/16 08:55 11/29/16 07:53 11/29/16 08:55 11/29/16 07:53 Intake and Output: 11/29/16 11/29/16 06:59 18:59 Intake Total 200 Balance 200 - Medications Medications: Current Medications Acetaminophen (Tylenol 325mg Tab) 650 mg PO Q6 PRN PRN Reason: Pain, Mild (1-3) Last Admin: 11/27/16 08:49 Dose: 650 mg Amlodipine Besylate (Norvasc) 10 mg PO DAILY [facility] Last Admin: 11/29/16 08:55 Dose: 10 mg Aspirin (Aspirin Chewable) 81 mg PO DAILY [facility] Last Admin: 11/29/16 08:55 Dose: 81 mg Atorvastatin Calcium (Lipitor) 80 mg PO DAILY [facility] Last Admin: 11/29/16 08:56 Dose: 80 mg Clonidine HCl (Catapres) 0.1 mg PO BID [facility] Last Admin: 11/29/16 08:53 Dose: 0.1 mg Dextrose (Dextrose 50% Inj) 0 ml IV STAT PRN; Protocol PRN Reason: Hyglycemia Protocol Dextrose (Glutose 15) 0 gm PO ONCE PRN; Protocol PRN Reason: Hypoglycemia Protocol Docusate Sodium (Colace) 100 mg PO BID [facility] Last Admin: 11/29/16 08:51 Dose: 100 mg Enoxaparin Sodium (Lovenox) 30 mg SC DAILY [facility] PRN Reason: Protocol Last Admin: 11/29/16 08:51 Dose: 30 mg Glipizide (Glucotrol Xl) 10 mg PO BRK [facility] Last Admin: 11/29/16 08:56 Dose: 10 mg Glucagon (Glucagen Diagnostic Kit) 0 mg IM STAT PRN; Protocol PRN Reason: Hypoglycemia Protocol Hydralazine HCl (Apresoline) 10 mg PO QID [facility] Last Admin: 11/29/16 08:52 Dose: 10 mg Insulin Human Regular (Humulin R) 0 units SC ACHS [facility] PRN Reason: Protocol Last Admin: 11/29/16 08:00 Dose: 3 unit Lactulose (Enulose) 20 gm PO DAILY PRN PRN Reason: Constipation Last Admin: 11/28/16 19:02 Dose: 20 gm Lidocaine (Lidoderm) 2 ea TD DAILY [facility] Last Admin: 11/29/16 08:56 Dose: 2 ea Senna/Docusate Sodium (Senokot S 50 Mg-8.6 Mg) 2 tab PO HS [facility] Last Admin: 11/28/16 22:08 Dose: 2 tab Tramadol HCl (Ultram) 50 mg PO Q12 [facility] Last Admin: 11/29/16 09:00 Dose: 50 mg - Labs Labs: 11/26/16 05:45 11/28/16 11:34 PT 10.3 Seconds (9.8-13.1) 11/24/16 12:13 INR 0.9 (0.9-1.2) 11/24/16 12:13 APTT 29.2 Seconds (25.6-37.1) 11/24/16 12:13 - Constitutional Appears: No Acute Distress - Head Exam Head Exam: ATRAUMATIC - Eye Exam Eye Exam: EOMI - ENT Exam ENT Exam: Mucous Membranes Moist - Neck Exam Neck Exam: Full ROM - Respiratory Exam Respiratory Exam: Clear to Ausculation Bilateral, NORMAL BREATHING PATTERN - Cardiovascular Exam Cardiovascular Exam: +S1, +S2 - GI/Abdominal Exam GI & Abdominal Exam: Soft, Normal Bowel Sounds. absent: Tenderness - Extremities Exam Extremities Exam: Full ROM, Normal Capillary Refill, Normal Inspection. absent : Joint Swelling, Pedal Edema - Back Exam Back Exam: absent: CVA tenderness (L), CVA tenderness (R) - Neurological Exam Neurological Exam: Alert, Awake - Psychiatric Exam Psychiatric exam: Normal Affect - Skin Skin Exam: Intact, Normal Color Assessment and Plan - Assessment and Plan (Free Text) Assessment: 71 yr old F admitted for chest pain and elevated BP, with PMHx of HTN, NIDDM, CAD, gout, chronic lower back pain, chronic knee pain and constipation admitted for elevated blood pressure. 1. Uncontrolled Hypertension -asymptomatic, continues to be -remains elevated with bradycardia, pt received 1 dose Lisinopril 5mg overnight -likely secondary to medication noncompliance -continue with home med: Amlodipine 10mg PO QD -tapered Clonidine 0.1 mg PO BID -Increased from Hydralazine 10mg PO QID to 25 mg TID -BUN/Cr is 33/1.7 with GFR 36 consistent with stage 3 CKD -Lisinopril 5 mg started -monitor BP 2. Chest pain -resolved -likely secondary to uncontrolled HTN -EKG: NSR with RBBB -Troponin negative x 2, proBNP 2360, Chest CT consistent with pulmonary arterial HTN (see full report) -CXR wnl -Echo: normal LV size, LVEF 70% -D-Dimer 0.87, VQ scan low probability for PE -Cardiology consult appreciated-Dr. Xavier: D-dimer, VQ scan low probability for PE, continue with Lipitor, Lovenox SC, Norvasc, Clonidine, ASA 3. Chronic Kidney Disease stage 3B (GFR 30-44 mL/min) -stable, BUN/Cr 33/1.8 GFR 33 (, consistent with Stage 3B CKD -home med ACEi held for now -f/u BUN/Cr, SPEP, UPEP -Renal US: No hydronephrosis, echogenic kidneys suggestive of medical renal disease (see full report) 4. Anemia -stable, H/H 10.6/32.2 (11/26/16) -likely secondary to anemia of chronic disease (CKD) vs multiple myeloma vs GI blood loss -f/u Stool of occult blood, hemoglobinopathy, SPEP, UPEP 5. Bilateral knee pain and LE weakness -left pain improved s/p steroid injection, chronic -b/l knee xray: mild-moderate degenerative changes, no acute findings -b/l LE duplex: left popliteal fossa cystic structure likely represents Bakers Cyst measuring 4.3x0.8x1.5 -PT eval: continue PT -Pain management: Lidoderm patch, Tylenol prn, tramadol prn 6. NIDDM -uncontrolled, HbA1c 7.0 -Humulin SC ACHS moderate dose protocol -Hypoglycemia protocol -Moderate carbohydrate/heart healthy diet -lipids: Tri 162/chol 312/LDL 178/ HDL 47 ;ASCVD risk 50.9%, start Atorvastatin 80mg PO QD -Glipizide 10 mg PO QD before breakfast and Glipizide 5 mg at dinner 7. DVT prophylaxis -Lovenox 30mg SC QD
--- NOTE | 2016-11-29 14:29 | CP.PCM.CON ---
History of Present Illness - History of Present Illness History of Present Illness: 71 y/o female with Hx/o HTN, CAD, NIDDM,Got was admitted for c/o chest pain & uncontrolled hypertension. Renal consult is requested because of elevated serum Creatinine level. Pt is not awareof any kidney problem in the past. Denied Hx/o kidney stone . No FHx/o kidney dis. Past Patient History - Past Social History Smoking Status: Never Smoked - CARDIAC Hx Cardiac Disorders: Yes - ENDOCRINE/METABOLIC Hx Diabetes Mellitus Type 2: Yes - MUSCULOSKELETAL/RHEUMATOLOGICAL Hx Falls: No - PSYCHIATRIC Hx Substance Use: No - SURGICAL HISTORY Other/Comment: "uterine surgery" - ANESTHESIA Hx Anesthesia: Yes Hx Anesthesia Reactions: No Meds Allergies/Adverse Reactions: Allergies Allergy/AdvReac Type Severity Reaction Status Date / Time No Known Allergies Allergy Verified 11/24/16 11:38 - Medications Medications: Current Medications Acetaminophen (Tylenol 325mg Tab) 650 mg PO Q6 PRN PRN Reason: Pain, Mild (1-3) Last Admin: 11/27/16 08:49 Dose: 650 mg Amlodipine Besylate (Norvasc) 10 mg PO DAILY [facility] Last Admin: 11/29/16 08:55 Dose: 10 mg Aspirin (Aspirin Chewable) 81 mg PO DAILY [facility] Last Admin: 11/29/16 08:55 Dose: 81 mg Atorvastatin Calcium (Lipitor) 80 mg PO DAILY [facility] Last Admin: 11/29/16 08:56 Dose: 80 mg Clonidine HCl (Catapres) 0.1 mg PO DAILY [facility] Dextrose (Dextrose 50% Inj) 0 ml IV STAT PRN; Protocol PRN Reason: Hyglycemia Protocol Dextrose (Glutose 15) 0 gm PO ONCE PRN; Protocol PRN Reason: Hypoglycemia Protocol Docusate Sodium (Colace) 100 mg PO BID [facility] Last Admin: 11/29/16 08:51 Dose: 100 mg Enoxaparin Sodium (Lovenox) 30 mg SC DAILY [facility] PRN Reason: Protocol Last Admin: 11/29/16 08:51 Dose: 30 mg Glipizide (Glucotrol Xl) 10 mg PO BRK [facility] Last Admin: 11/29/16 08:56 Dose: 10 mg Glipizide (Glucotrol) 5 mg PO ACD [facility] Glucagon (Glucagen Diagnostic Kit) 0 mg IM STAT PRN; Protocol PRN Reason: Hypoglycemia Protocol Hydralazine HCl (Apresoline) 25 mg PO TID [facility] Last Admin: 11/29/16 12:16 Dose: 25 mg Insulin Human Regular (Humulin R) 0 units SC ACHS [facility] PRN Reason: Protocol Last Admin: 11/29/16 12:16 Dose: 4 unit Lactulose (Enulose) 20 gm PO DAILY PRN PRN Reason: Constipation Last Admin: 11/28/16 19:02 Dose: 20 gm Lidocaine (Lidoderm) 2 ea TD DAILY [facility] Last Admin: 11/29/16 08:56 Dose: 2 ea Lisinopril (Zestril) 5 mg PO DAILY [facility] Senna/Docusate Sodium (Senokot S 50 Mg-8.6 Mg) 2 tab PO HS [facility] Last Admin: 11/28/16 22:08 Dose: 2 tab Tramadol HCl (Ultram) 50 mg PO Q12 [facility] Last Admin: 11/29/16 09:00 Dose: 50 mg Physical Exam - Constitutional Appears: No Acute Distress - Head Exam Head Exam: ATRAUMATIC, NORMOCEPHALIC - Eye Exam Additional comments: No icterus - ENT Exam ENT Exam: Mucous Membranes Moist - Neck Exam Additional comments: JVD negative - Respiratory Exam Respiratory Exam: NORMAL BREATHING PATTERN Additional comments: Lungs clear - Cardiovascular Exam Cardiovascular Exam: REGULAR RHYTHM - GI/Abdominal Exam GI & Abdominal Exam: Soft Additional comments: Abd is nontender No abdominal bruit - Extremities Exam Additional comments: No edema or cyanosis Results - Vital Signs Recent Vital Signs: Last Vital Signs Temp 97.9 F 11/29/16 12:24 Pulse 60 11/29/16 12:24 Resp 18 11/29/16 12:24 BP 160/72 H 11/29/16 12:24 Pulse Ox 99 11/29/16 12:24 - Labs Result Diagrams: 11/26/16 05:45 11/28/16 11:34 Labs: Laboratory Results - last 24 hr 11/28/16 11/28/16 11/29/16 15:57 22:11 04:30 POC Glucose (mg/dL) 207 H 354 H Stool Occult Blood Negative 11/29/16 11/29/16 05:24 11:08 POC Glucose (mg/dL) 215 H 280 H Stool Occult Blood Assessment & Plan - Assessment and Plan (Free Text) Assessment: Pt has chronuc kidney disease ( Stage 111). Renal US shows B/L echogenic kidneys C/W medical renal dis. Etiology hypertensive arteriolosclerosis &/or diabetic nepropathy.UA shows significant proteinuria Uncontrolled HTN Plan: Control BP urine for microalbumin Quantitation of proteinuria
[2016-11-29] MEDS: Docusate-Senna 50 mg-8.6 mg Tab PO SCH (21:18)
[2016-11-30] MEDS: Enoxaparin 30 mg Syringe SC SCH ×2 (08:24→12:54)
[2016-11-30] MEDS: Insulin Regular 100 units/ml SC SCH ×4 (08:25→21:37)
[2016-11-30] MEDS: GlipiZIDE 10 mg SR Tab PO SCH (08:30)
[2016-11-30] MEDS: Lidocaine 5% Patch TD SCH (08:31)
--- NOTE | 2016-11-30 11:50 | CP.PCM.PN ---
Subjective - Date & Time of Evaluation Date of Evaluation: 11/30/16 Time of Evaluation: 07:25 - Subjective Subjective: Interpretor # [id number] (Gloria) Patient seen and examined at beside, in no acute distress, no acute events overnight. Denies SOB, chest pain, weakness or dizziness. Reports normal urine output and stool output. Bilateral lower extremity pain persists. Has no concerns or complaints at this time. Objective - Vital Signs/Intake and Output Vital Signs (last 24 hours): Temp Pulse Resp BP Pulse Ox 98 F 56 L 18 176/74 H 97 11/30/16 08:04 11/30/16 09:00 11/30/16 08:04 11/30/16 08:34 11/30/16 08:04 Intake and Output: 11/30/16 11/30/16 06:59 18:59 Intake Total 240 Output Total 500 Balance -260 - Medications Medications: Current Medications Acetaminophen (Tylenol 325mg Tab) 650 mg PO Q6 PRN PRN Reason: Pain, Mild (1-3) Last Admin: 11/27/16 08:49 Dose: 650 mg Amlodipine Besylate (Norvasc) 10 mg PO DAILY [facility] Last Admin: 11/30/16 08:28 Dose: 10 mg Aspirin (Aspirin Chewable) 81 mg PO DAILY [facility] Last Admin: 11/30/16 08:30 Dose: 81 mg Atorvastatin Calcium (Lipitor) 80 mg PO DAILY [facility] Last Admin: 11/30/16 08:30 Dose: 80 mg Clonidine HCl (Catapres) 0.2 mg PO TID [facility] Dextrose (Dextrose 50% Inj) 0 ml IV STAT PRN; Protocol PRN Reason: Hyglycemia Protocol Dextrose (Glutose 15) 0 gm PO ONCE PRN; Protocol PRN Reason: Hypoglycemia Protocol Docusate Sodium (Colace) 100 mg PO BID [facility] Last Admin: 11/30/16 08:29 Dose: 100 mg Enoxaparin Sodium (Lovenox) 30 mg SC DAILY [facility] PRN Reason: Protocol Glipizide (Glucotrol Xl) 10 mg PO BRK [facility] Last Admin: 11/30/16 08:30 Dose: 10 mg Glipizide (Glucotrol) 5 mg PO ACD [facility] Last Admin: 11/29/16 16:23 Dose: 5 mg Glucagon (Glucagen Diagnostic Kit) 0 mg IM STAT PRN; Protocol PRN Reason: Hypoglycemia Protocol Hydralazine HCl (Apresoline) 25 mg PO TID [facility] Last Admin: 11/30/16 08:29 Dose: 25 mg Insulin Human Regular (Humulin R) 0 units SC ACHS [facility] PRN Reason: Protocol Last Admin: 11/30/16 08:25 Dose: Not Given Lactulose (Enulose) 20 gm PO DAILY PRN PRN Reason: Constipation Last Admin: 11/28/16 19:02 Dose: 20 gm Lidocaine (Lidoderm) 2 ea TD DAILY [facility] Last Admin: 11/30/16 08:31 Dose: 2 ea Lisinopril (Zestril) 5 mg PO DAILY [facility] Last Admin: 11/30/16 08:34 Dose: 5 mg Senna/Docusate Sodium (Senokot S 50 Mg-8.6 Mg) 2 tab PO HS [facility] Last Admin: 11/29/16 21:18 Dose: 2 tab Tramadol HCl (Ultram) 50 mg PO Q12 [facility] Last Admin: 11/30/16 08:38 Dose: 50 mg - Labs Labs: 11/26/16 05:45 11/28/16 11:34 PT 10.3 Seconds (9.8-13.1) 11/24/16 12:13 INR 0.9 (0.9-1.2) 11/24/16 12:13 APTT 29.2 Seconds (25.6-37.1) 11/24/16 12:13 - Constitutional Appears: Well, No Acute Distress - Head Exam Head Exam: ATRAUMATIC, NORMOCEPHALIC - Eye Exam Eye Exam: EOMI, PERRL - ENT Exam ENT Exam: Mucous Membranes Moist - Neck Exam Neck Exam: Full ROM. absent: Lymphadenopathy - Respiratory Exam Respiratory Exam: Clear to Ausculation Bilateral, NORMAL BREATHING PATTERN - Cardiovascular Exam Cardiovascular Exam: REGULAR RHYTHM, +S1, +S2 - GI/Abdominal Exam GI & Abdominal Exam: Soft (obese), Normal Bowel Sounds. absent: Tenderness - Extremities Exam Extremities Exam: Full ROM, Pedal Edema (non pitting, ) - Back Exam Back Exam: absent: CVA tenderness (L), CVA tenderness (R) - Neurological Exam Neurological Exam: Alert, Awake, CN II-XII Intact - Psychiatric Exam Psychiatric exam: Normal Affect, Normal Mood - Skin Skin Exam: Dry, Intact, Warm Assessment and Plan - Assessment and Plan (Free Text) Assessment: 71 yr old F admitted for chest pain and elevated BP, with PMHx of HTN, NIDDM, CAD, gout, chronic lower back pain, chronic knee pain and constipation. Patients BP remains elevated despite adjustment of multiple anti-hypertensive medications, bilateral lower extremity swelling and pain has improved but persists, Cardiology on board. Nephrology on board. BP meds currently being adjusted. 1. Uncontrolled Hypertension -remains elevated with bradycardia, pt received 1 dose Lisinopril 5mg overnight -likely secondary to medication noncompliance -continue with home med: Amlodipine 10mg PO QD -Clonidine 0.2 mg PO TID, Hydralazine 25mg PO TID, Lisinopril 5mg PO QD -stage 3B CKD -Nephrology consult appreciated: Dr. Zaidi: will follow recommendations -monitor BP 2. Chest pain -resolved -likely secondary to uncontrolled HTN -EKG: NSR with RBBB -Troponin negative x 2, proBNP 2360, Chest CT consistent with pulmonary arterial HTN (see full report) -CXR wnl -Echo: normal LV size, LVEF 70% -D-Dimer 0.87, VQ scan low probability for PE -Cardiology consult appreciated-Dr. Xavier: D-dimer, VQ scan low probability for PE, continue with Lipitor, Lovenox SC, Norvasc, Clonidine, ASA 3. Chronic Kidney Disease stage 3B (GFR 30-44 mL/min) -stable, BUN/Cr 36/1.7 GFR 36 (11/28), consistent with Stage 3B CKD -home med ACEi held for now -f/u BUN/Cr, SPEP, UPEP -Renal US: No hydronephrosis, echogenic kidneys suggestive of medical renal disease (see full report) 4. Anemia -stable, H/H 10.6/32.2 (11/26/16) -likely secondary to anemia of chronic disease (CKD) vs multiple myeloma vs GI blood loss -f/u Stool of occult blood, hemoglobinopathy, SPEP, UPEP 5. Bilateral knee pain and LE weakness -left pain improved s/p steroid injection, chronic -b/l knee xray: mild-moderate degenerative changes, no acute findings -b/l LE duplex: left popliteal fossa cystic structure likely represents Bakers Cyst measuring 4.3x0.8x1.5 -PT eval: continue PT, home with services -Pain management: Lidoderm patch, Tylenol prn, tramadol prn 6. NIDDM -uncontrolled, HbA1c 7.0 -Humulin SC ACHS moderate dose protocol -Hypoglycemia protocol -home med held (sulfonylurea -Glicazide 60mg PO QD) -Moderate carbohydrate/heart healthy diet -lipids: Tri 162/chol 312/LDL 178/ HDL 47 ;ASCVD risk 50.9%, start Atorvastatin 80mg PO QD -Glipizide 10 mg PO QD before breakfast, Glipizide 5mg PO ACD 7. DVT prophylaxis -Lovenox 30mg SC QD
[2016-11-30 13:05] LABS: CALCIUM 8.6 mg/dL (8.4-10.2)
[2016-11-30 20:13] LABS: BETA 1 GLOBULIN 0.3 g/dL (0.4-0.6); BETA 2 GLOBULIN 0.4 g/dL (0.2-0.5); GAMMA GLOBULIN 1.1 g/dL (0.8-1.7)
[2016-11-30] MEDS: Docusate-Senna 50 mg-8.6 mg Tab PO SCH (21:27)
[2016-12-01 00:24] VITALS: O2SAT 99
[2016-12-01 08:05] VITALS: RESP 20; TEMP 98.3
[2016-12-01] MEDS: Lidocaine 5% Patch TD SCH (08:50)
[2016-12-01] MEDS: GlipiZIDE 10 mg SR Tab PO SCH (08:50)
[2016-12-01] MEDS: Enoxaparin 30 mg Syringe SC SCH (08:51)
[2016-12-01 08:56] VITALS: BP 147/69; PULSE 54
[2016-12-01 09:05] LABS: CALCIUM 9.5 mg/dL (8.4-10.2)
--- NOTE | 2016-12-01 12:43 | CP.PCM.DIS ---
Provider - Provider Date of Admission: 11/24/16 15:49 Attending physician: Lisa Luong MD Primary care physician: No PMD Consults: Dr. Xavier -cardiology; Dr. Umaña- nephrology Time Spent in preparation of Discharge (in minutes): 30 Hospital Course - Lab Results Lab Results: Most Recent Lab Values WBC 5.0 K/uL (4.8-10.8) 11/26/16 05:45 RBC 3.69 Mil/uL (3.80-5.20) L 11/26/16 05:45 Hgb 10.6 g/dL (12.0-16.0) L 11/26/16 05:45 Hct 32.2 % (34.0-47.0) L 11/26/16 05:45 MCV 87.2 fl (81.0-99.0) 11/26/16 05:45 MCH 28.7 pg (27.0-31.0) 11/26/16 05:45 MCHC 32.9 g/dL (33.0-37.0) L 11/26/16 05:45 RDW 13.7 % (11.5-14.5) 11/26/16 05:45 Plt Count 246 K/uL (130-400) 11/26/16 05:45 MPV 8.7 fl (7.2-11.7) 11/24/16 11:54 Neut % (Auto) 66.4 % (50.0-75.0) 11/24/16 11:54 Lymph % (Auto) 24.1 % (20.0-40.0) 11/24/16 11:54 Centre % (Auto) 7.6 % (0.0-10.0) 11/24/16 11:54 Eos % (Auto) 1.1 % (0.0-4.0) 11/24/16 11:54 Baso % (Auto) 0.8 % (0.0-2.0) 11/24/16 11:54 Neut # 4.2 K/uL (1.8-7.0) 11/24/16 11:54 Lymph # 1.5 K/uL (1.0-4.3) 11/24/16 11:54 Centre # 0.5 K/uL (0.0-0.8) 11/24/16 11:54 Eos # 0.1 K/uL (0.0-0.7) 11/24/16 11:54 Baso # 0.1 K/uL (0.0-0.2) 11/24/16 11:54 ESR 75 mm/hr (0-30) H 11/26/16 05:45 Retic Count 1.8 % (0.5-1.5) H 11/26/16 05:45 Hemoglobinopathy Red Blood Count 3.67 Mill/mcL (3.80-5.10) L 11/26/16 05:45 Hemoglobinopathy Hct 31.6 % (35.0-45.0) L 11/26/16 05:45 Hemoglobinopathy Hgb 10.3 g/dL (11.7-15.5) L 11/26/16 05:45 Hemoglobinopathy MCV 86.1 fL (80.0-100.0) 11/26/16 05:45 Hemoglobinopathy MCH 28.1 pg (27.0-33.0) 11/26/16 05:45 Hemoglobinopathy RDW 13.9 % (11.0-15.0) 11/26/16 05:45 PT 10.3 Seconds (9.8-13.1) 11/24/16 12:13 INR 0.9 (0.9-1.2) 11/24/16 12:13 APTT 29.2 Seconds (25.6-37.1) 11/24/16 12:13 D-Dimer, Quantitative 0.87 mg/L FEU (0-0.50) H 11/25/16 14:26 Sodium 137 mmol/l (132-148) 12/01/16 08:30 Potassium 4.0 MMOL/L (3.6-5.0) 12/01/16 08:30 Chloride 99 mmol/L (98-107) 12/01/16 08:30 Carbon Dioxide 27 mmol/L (22-30) 12/01/16 08:30 Anion Gap 15 (10-20) 12/01/16 08:30 BUN 39 mg/dl (7-17) H 12/01/16 08:30 Creatinine 2.1 mg/dL (0.7-1.2) H 12/01/16 08:30 Est GFR ( Amer) 28 12/01/16 08:30 Est GFR (Non-Af Amer) 23 12/01/16 08:30 POC Glucose (mg/dL) 130 mg/dL (65-110) H 12/01/16 05:36 Random Glucose 122 mg/dL (65-105) H 12/01/16 08:30 Hemoglobin A1c 7.0 % (4.2-6.5) H 11/25/16 06:46 Calcium 9.5 mg/dL (8.4-10.2) 12/01/16 08:30 Magnesium 2.2 MG/DL (1.6-2.3) 11/24/16 11:54 Total Bilirubin 0.3 mg/dl (0.2-1.3) 11/24/16 11:54 AST 24 U/L (14-36) 11/24/16 11:54 ALT 28 U/L (9-52) 11/24/16 11:54 Alkaline Phosphatase 89 U/L (38-126) 11/24/16 11:54 Troponin I 0.0160 ng/mL (0.00-0.120) 11/24/16 20:31 NT-Pro-B Natriuret Pep 2360 pg/ml (0-900) H 11/24/16 12:13 Total Protein 7.8 G/DL (6.3-8.2) 11/24/16 11:54 Total Protein (PEP) 6.0 g/dL (6.1-8.1) L 11/26/16 05:45 Albumin 3.9 g/dL (3.5-5.0) 11/24/16 11:54 Albumin (PEP) 2.9 g/dL (3.8-4.8) L 11/26/16 05:45 Globulin 3.9 gm/dL (2.2-3.9) 11/24/16 11:54 Albumin/Globulin Ratio 1.0 (1.0-2.1) 11/24/16 11:54 Jjbdf-2-Hvgojasyj 0.3 g/dL (0.2-0.3) 11/26/16 05:45 Myrvg-0-Achuydqip 0.9 g/dL (0.5-0.9) 11/26/16 05:45 Kqiw-5-Irlkijoa 0.3 g/dL (0.4-0.6) L 11/26/16 05:45 Gikq-7-Ocnzlofv 0.4 g/dL (0.2-0.5) 11/26/16 05:45 Gamma Globulins 1.1 g/dL (0.8-1.7) 11/26/16 05:45 Abnorm Protein Band 1 TEST NOT PERFORMED 11/26/16 05:45 Abnorm Protein Band 2 TEST NOT PERFORMED 11/26/16 05:45 Abnorm Protein Band 3 TEST NOT PERFORMED 11/26/16 05:45 Triglycerides 162 mg/DL (0-149) H 11/25/16 06:25 Cholesterol 312 mg/dL (0-199) H 11/25/16 06:25 LDL Cholesterol Direct 178 mg/dL (0-129) H 11/25/16 06:25 HDL Cholesterol 47 MG/DL (30-70) 11/25/16 06:25 Urine Color Straw (YELLOW) 11/24/16 12:50 Urine Clarity Clear (Clear) 11/24/16 12:50 Urine pH 7.0 (5.0-8.0) 11/24/16 12:50 Ur Specific [place] 1.008 (1.003-1.030) 11/24/16 12:50 Urine Protein >=500 mg/dL (NEGATIVE) 11/24/16 12:50 Urine Glucose (UA) Neg mg/dL (Normal) 11/24/16 12:50 Urine Ketones Negative mg/dL (NEGATIVE) 11/24/16 12:50 Urine Blood Negative (NEGATIVE) 11/24/16 12:50 Urine Nitrate Negative (NEGATIVE) 11/24/16 12:50 Urine Bilirubin Negative (NEGATIVE) 11/24/16 12:50 Urine Urobilinogen 0.2-1.0 mg/dL (0.2-1.0) 11/24/16 12:50 Ur Leukocyte Esterase Neg Jori/uL (Negative) 11/24/16 12:50 Urine RBC (Auto) 2 /hpf (0-3) 11/24/16 12:50 Urine Microscopic WBC 1 /hpf (0-5) 11/24/16 12:50 Ur Squamous Epith Cells 1 /hpf (0-5) 11/24/16 12:50 Urine Collection Time 24 HRS 11/30/16 21:09 Urine Total Volume 900 mL 11/30/16 21:09 Creatinine Clearance 24.0 mL/min (87-107) L 11/30/16 21:09 Ur Protein 24 Hr Calc 3357.0 mg/24hr (42-225) H 11/30/16 21:09 Stool Occult Blood Negative (NEGATIVE) 11/29/16 04:30 RUBY & SPEP Interp See note 11/26/16 05:45 - Hospital Course Hospital Course: 71 yr old F admitted for chest pain and elevated BP, with PMHx of HTN, NIDDM, CKD Stage 3B, CAD, gout, chronic lower back pain, chronic knee pain and constipation. ACS vs PE vs CHF were ruled out, patients chest pain resolved. BP normalized s/p adjustment of multiple anti-hypertensive medications, bilateral lower extremity pain improved. Patient was discharged on Amlodipine 10mg PO QD, Hydralazine 25mg PO TID, Clonidine 0.2mg PO TID, HCTZ 12.5mg PO QD, Glipizide XL 10mg PO QD before breakfast, Glipizide 5mg PO QD before dinner, Lipitor 80mg PO QHS, ASA 81mg PO QD, Tramadol 50mg PO Q12 PRN pain x 14 tabs. Patient has follow up appointment in clinic with Dr. Pepe on 12/03/16 at 1:40pm. Everything was explained to patient using interpretor ID # [id number] (Swedish: dialect) and to son at bedside. Contact info for patients sons: Hellen Ju [phone], and Lebron [facility] [phone] - Date & Time of H&P Date of H&P: 11/24/16 Time of H&P: 19:18 Discharge Exam - Head Exam Head Exam: ATRAUMATIC, NORMOCEPHALIC - Eye Exam Eye Exam: EOMI, PERRL - ENT Exam ENT Exam: Mucous Membranes Moist - Neck Exam Neck exam: Full Rom - Respiratory Exam Respiratory Exam: Clear to PA & Lateral, NORMAL BREATHING PATTERN - Cardiovascular Exam Cardiovascular Exam: REGULAR RHYTHM, +S1, +S2 - GI/Abdominal Exam GI & Abdominal Exam: Normal Bowel Sounds, Soft (obese). absent: Distended, Tenderness - Extremities Exam Extremities exam: full ROM - Back Exam Back exam: absent: CVA tenderness (L), CVA tenderness (R) - Neurological Exam Neurological exam: Alert, CN II-XII Intact, Normal Gait, Oriented x3 - Psychiatric Exam Psychiatric exam: Normal Affect, Normal Mood - Skin Skin Exam: Dry, Intact, Warm Discharge Plan - Discharge Medications Prescriptions: amLODIPine [Norvasc] 10 mg PO DAILY #30 tab Aspirin [Aspirin Chewable] 81 mg PO DAILY #30 Atorvastatin [Lipitor] 80 mg PO DAILY #30 tab cloNIDine [Catapres] 0.2 mg PO TID #90 tab GlipiZIDE [Glucotrol] 5 mg PO ACD #30 tab GlipiZIDE SR [Glucotrol XL] 10 mg PO BRK #30 tab hydrALAZINE [Apresoline] 25 mg PO TID #90 tab hydroCHLOROthiazide [Microzide] 12.5 mg PO DAILY #30 cap traMADol [Ultram] 50 mg PO Q12 PRN #14 tab PRN Reason: Pain, Moderate (4-7) - Follow Up Plan Condition: STABLE Disposition: HOME/ ROUTINE Instructions: Chronic Kidney Disease (GEN), Heart Healthy Diet (GEN), Diabetes Mellitus Type 2 in Adults (GEN), Low Sodium Diet (GEN), Hypertension (DC), Hypertension (GEN), Venous Insufficiency (GEN) Additional Instructions: -Follow up in clinic with Dr. Pepe on 12/03/16 at 1:40pm -take medications as prescribed Referrals: Jyoti Pepe MD [Resident] - Clinical Quality Measures - Date & Time of Discharge Summary Date of Discharge Summary: 12/01/16 Time of Discharge Summary: 18:29
[2016-12-01 21:24] LABS: HEMOGLOBIN F <1.0 Percent (<2.0)
== END 2016-12-01 12:05 | disposition home or self-care (01) | DRG 134 ==
LOC: H.ER 11:08 → H.ERHOLD 15:49 → H.TEL 17:47
PROVIDERS: ADMIT Family Medicine Geriatric Medicine; ATTEND Family Medicine Geriatric Medicine
PROC: 3E0U33Z Introduction of Anti-inflammatory into Joints, Percutaneous Approach (ICD-10-PCS; principal; 2016-11-26)
DX: I16.0 Hypertensive urgency (principal); E11.22 Type 2 diabetes mellitus with diabetic chronic kidney disease; E11.65 Type 2 diabetes mellitus with hyperglycemia; I27.2 Other secondary pulmonary hypertension; D58.2 Other hemoglobinopathies; N18.3 Chronic kidney disease, stage 3 (moderate); I25.10 Atherosclerotic heart disease of native coronary artery without angina pectoris; I45.10 Unspecified right bundle-branch block; K59.00 Constipation, unspecified; M10.9 Gout, unspecified; G89.29 Other chronic pain; Z79.84 Long term (current) use of oral hypoglycemic drugs; Z91.14 Patient's other noncompliance with medication regimen; M54.5 Low back pain; R00.1 Bradycardia, unspecified; D63.1 Anemia in chronic kidney disease; M25.561 Pain in right knee; M25.562 Pain in left knee; I12.9 Hypertensive chronic kidney disease with stage 1 through stage 4 chronic kidney disease, or unspecified chronic kidney disease; M71.22 Synovial cyst of popliteal space [Baker], left knee; M71.21 Synovial cyst of popliteal space [Baker], right knee

== ENCOUNTER 2017-01-06 11:43 | Inpatient (IN) | payer MEDICAID, SELFPAY ==
--- NOTE | 2017-01-06 13:43 | ED PDOC ---
HPI: General Adult Time Seen by Provider: 01/06/17 12:26 Chief Complaint (Nursing): Weakness/Neurological Deficit Chief Complaint (Provider): right sided weakness History Per: Family (son) History/Exam Limitations: language barrier Onset/Duration Of Symptoms: Days (x 4) Additional Complaint(s): Belinda Garcia is a 71 year old female, with a previous medical history of diabetes and hypertension, who presents to the ED accompanied by her son for the evaluation of right sided weakness associated with a facial droop and difficulty speaking ongoing for 4 days secondary to sustaining a fall 5 days ago. According to the son, there was no weakness noted when the patient fell 5 days ago. Son also noted patient to have fallen last week as well. PMD: none provided NIHSS Stroke Scale - Date/Time Evaluation Performed Date Performed: 01/06/17 Time Performed: 12:05 When Was NIHSS Performed: Baseline - How Severe is the Stroke Level of Consciousness: 0=Alert LOC to Questions: 0=Both comments correct LOC to commands: 0=Obeys both correctly Best Gaze: 0=Normal Visual: 0=No visual loss Facial: 2=Partial (lower face paralysis) Motor Arm - Left: 0=No drift Motor Arm - Right: 0=No drift Motor Leg - Left: 0=No drift Motor Leg - Right: 1=Drift before 5 sec Limb Ataxia: 0=Absent Sensory: 1=Mild to moderate loss Best Language: 1=Mild to moderate aphasia Extinction & Inattention (Neglect): 0=Normal, no object Past Medical History Reviewed: Historical Data, Nursing Documentation, Vital Signs Vital Signs: Last Vital Signs Temp 98 F 01/06/17 11:50 Pulse 62 01/06/17 14:40 Resp 18 01/06/17 14:40 BP 167/71 H 01/06/17 14:40 Pulse Ox 98 01/06/17 14:40 - Medical History PMH: Diabetes, HTN, Chronic Kidney Disease - Surgical History Surgical History: No Surg Hx - Family History Family History: States: Unknown Family Hx - Home Medications Home Medications: Ambulatory Orders Medication Instructions Recorded Aspirin [Aspirin Chewable] 81 mg PO DAILY #30 12/01/16 Atorvastatin [Lipitor] 80 mg PO DAILY #30 tab 12/01/16 GlipiZIDE SR [Glucotrol XL] 10 mg PO BRK #30 tab 12/01/16 GlipiZIDE [Glucotrol] 5 mg PO ACD #30 tab 12/01/16 amLODIPine [Norvasc] 10 mg PO DAILY #30 tab 12/01/16 cloNIDine [Catapres] 0.2 mg PO TID #90 tab 12/01/16 hydrALAZINE [Apresoline] 25 mg PO TID #90 tab 12/01/16 hydroCHLOROthiazide [Microzide] 12.5 mg PO DAILY #30 cap 12/01/16 traMADol [Ultram] 50 mg PO Q12 PRN #14 tab 12/01/16 - Allergies Allergies/Adverse Reactions: Allergies Allergy/AdvReac Type Severity Reaction Status Date / Time No Known Allergies Allergy Verified 11/24/16 11:38 Review of Systems Review Of Systems: ROS cannot be obtained secondary to pt's inabilty to answer questions. Neurological: Positive for: Weakness (right side), Change in Speech, Other ( right facial droop ) Physical Exam - Reviewed Nursing Documentation Reviewed: Yes Vital Signs Reviewed: Yes - Physical Exam Appears: Positive for: Well, Non-toxic, No Acute Distress Head Exam: Positive for: ATRAUMATIC, NORMAL INSPECTION, NORMOCEPHALIC Skin: Positive for: Normal Color, Warm, Dry Eye Exam: Positive for: Normal appearance, EOMI, PERRL ENT: Positive for: Normal ENT Inspection Neck: Positive for: Normal, Painless ROM, Supple Cardiovascular/Chest: Positive for: Regular Rate, Rhythm Respiratory: Positive for: CNT, Normal Breath Sounds Gastrointestinal/Abdominal: Positive for: Normal Exam, Bowel Sounds, Soft. Negative for: Tenderness Back: Positive for: Normal Inspection Extremity: Positive for: Normal ROM, Other (mild weakness to the right hand grasp and right leg weaker than the left ). Negative for: Tenderness, Calf Tenderness, Deformity, Swelling Neurologic/Psych: Positive for: Alert, Oriented (oriented but unable to fully assess completely secondary to language barrier ), Facial Droop (right sided ), Other (able to follow commands ) - Laboratory Results Result Diagrams: 01/06/17 13:30 01/06/17 13:30 - ECG O2 Sat by Pulse Oximetry: 98 (RA) Pulse Ox Interpretation: Normal Medical Decision Making Medical Decision Making: Initial Impression: CVA of the right hemiparesis Initial Plan: * swallow eval * CT head w/o contrast * EKG * labs * NPO diet * urine dipstick * PTT * PPatient * CXR * accu-check * reevaluation Scribe Attestation: Documented by Jamilah Rivas, acting as a scribe for Kimberly Mendoza MD. Provider Scribe Attestation: All medical record entries made by the Scribe were at my direction and personally dictated by me. I have reviewed the chart and agree that the record accurately reflects my personal performance of the history, physical exam, medical decision making, and the department course for this patient. I have also personally directed, reviewed, and agree with the discharge instructions and disposition. Disposition - Clinical Impression Clinical Impression: CVA (cerebral vascular accident) - Patient ED Disposition Is Patient to be Admitted: Yes Doctor Will See Patient In The: Hospital - Disposition Disposition: Transfer of Care Disposition Time: 14:52 Condition: GUARDED Forms: [facility] (Finnish) - POA Present On Arrival: None
[2017-01-06 13:55] LABS: POTASSIUM 3.7 MMOL/L (3.6-5.0)
[2017-01-06 13:57] LABS: ALB/GLOB RATIO 1.1 (1.0-2.1); BILIRUBIN,TOTAL 0.5 mg/dl (0.2-1.3); TOTAL PROTEIN 7.4 G/DL (6.3-8.2)
[2017-01-06 13:58] LABS: CALCIUM 9.9 mg/dL (8.4-10.2)
[2017-01-06 14:10] LABS: BASO # 0.1 K/uL (0.0-0.2); BASO % 0.9 % (0.0-2.0); EOS # 0.1 K/uL (0.0-0.7); EOS % 1.3 % (0.0-4.0); HEMATOCRIT 32.7 % (34.0-47.0); LYMPH # 1.1 K/uL (1.0-4.3); LYMPH % 14.5 % (20.0-40.0); MEAN CELL VOLUME 86.6 fl (81.0-99.0); MEAN CORPUSCULAR HEMOGLOBIN 29.2 pg (27.0-31.0); MEAN CORPUSCULAR HGB CONC 33.7 g/dL (33.0-37.0); MEAN PLATELET VOLUME 8.8 fl (7.2-11.7); MONO # 0.4 K/uL (0.0-0.8); MONO % 6.1 % (0.0-10.0); NEUT # 5.6 K/uL (1.8-7.0); NEUT % 77.2 % (50.0-75.0); RED CELL DISTRIBUTION WIDTH 14.4 % (11.5-14.5); WHITE BLOOD COUNT 7.3 K/uL (4.8-10.8)
[2017-01-06 14:14] LABS: PARTIAL THROMBOPLASTIN TIME 31.3 Seconds (25.6-37.1)
--- NOTE | 2017-01-06 14:14 | CT ---
PROCEDURE: CT scan brain dated 01/06/2017. HISTORY: cva COMPARISON: None available. TECHNIQUE: Axial computed tomography images were obtained through the head/brain without intravenous contrast. Radiation dose: Total exam DLP = 777.17 mGy-cm. This CT exam was performed using one or more of the following dose reduction techniques: Automated exposure control, adjustment of the mA and/or kV according to patient size, and/or use of iterative reconstruction technique. FINDINGS: HEMORRHAGE: No acute parenchymal, subarachnoid or extra-axial hemorrhage. BRAIN: Mild chronic periventricular white matter ischemic changes are seen extending peripherally into the deep and subcortical white matter both cerebral hemispheres. In addition, there are multiple chronic appearing bilateral basal nuclei lacunar type infarcts which appear to be admixed with a few dilated perivascular spaces. . The possibility of a small hyperacute infarct cannot be completely excluded right and there is any concern, consider followup MRI with diffusion imaging urgency of which should be based on clinical correlation and whether patient is currently in a treatment window for thrombolytic therapy. Moderate generalized volume loss. VENTRICLES: No obstructive hydrocephalus. CALVARIUM: Unremarkable. PARANASAL SINUSES: Frontal sinuses are hypoplastic/ underpneumatized. . The right maxillary antrum is also slightly diminutive. Mild sclerosis and thickening of the posterolateral barrera both maxillary antra. Small focus of polypoid like mucosal thickening and a mucous retention cyst right chamber sphenoid sinus. MASTOID AIR CELLS: Unremarkable as visualized. No inflammatory changes. OTHER FINDINGS: None. IMPRESSION: No acute intracranial hemorrhage. Mild chronic white matter ischemic changes with scattered chronic bilateral basal nuclei lacunar type infarcts of presumed to be admixed with a few dilated perivascular spaces. Note that the possibility of a hyperacute infarct cannot be completely excluded if there is any concern, followup MRI recommended, the urgency of which should be based on clinical correlation and whether patient is currently in a treatment window for thrombolytic therapy. Moderate generalized volume loss.
--- NOTE | 2017-01-06 17:11 | CP.PCM.HP ---
History of Present Illness - History of Present Illness History of Present Illness: Interpretor ID # [id number] (Telugu: dialect) 71 yr old F brought to ED by son with complaint of persistent right facial droop and RUE weakness for the past 4 days. Patient has PMHx including HTN, NIDDM, CKD Stage 3B, CAD, gout, chronic lower back pain, chronic b/l knee pain and constipation. Patient reports she had 2 falls in the past week due to feeling pain and weakness in her legs, denies head trauma. 4 days ago she woke up and could not use her right hand much because it was weak, she also felt like her lips were moving towards the left side of her face when she talked or ate, her symptoms slowly improved so she did not come to the ED. Today her son brought her in because her right facial droop and right hand weakness have persisted. She denies chest pain, headaches, LOC, nausea, vomiting, diarrhea, sweating, fever or chills. Her appetite has decreased though she continues to tolerate PO diet, she continues to ambulate but son reports she is walking at a slower pace. Contact info for patients sons: Hellen Ju [phone], and Lebron [facility] [phone] PMD: [facility] (last clinic visit 12/29/16) PMHx: HTN, NIDDM, CKD Stage 3B, CAD, gout, chronic lower back pain, chronic b/l knee pain and constipation ObHx: , x 10 PSurgHx: hysterectomy, lumbar procedure (laminectomy), oral surgery SocHx: denies smoking, Etoh, drugs; arrived from [facility] 1 [facility] ago where she resided for past 5 yrs with her children Meds: Amlodipine 10mg PO QD, Hydralazine 25mg PO TID, Clonidine 0.2mg PO BID, HCTZ 12.5mg PO QD, Glipizide XL 10mg PO QD before breakfast, Glipizide 5mg PO QD before dinner, Lipitor 80mg PO QHS, ASA 81mg PO QD ED Course: -VSS: BP 136/63 mmHg, HR 64, RR 18, T 98.0 F, O2 sat 98% on room air -EKG: NSR , RBBB (official report pending) -CBC: WBC 7.3, H/H 11/32.7, plts 286 -coags wnl -CMP: Na 138, K+ 3.7, Cl 102, HCO3 28, BUN/Cr 40/2.2, glucose 220, Anion gap 12 -CT head: no acute ICH, mild white matter ischemic changes w/ scattered chronic bilateral basal nuclei lacunar type infarcts (see full report) -CXR: ordered/not done -Speech and swallow eval: recommend Mechanical Soft Bite Size, thin liquids Present on Admission - Present on Admission Any Indicators Present on Admission: Yes History of DVT/PE: No History of Uncontrolled Diabetes: Yes Urinary Catheter: No Decubitus Ulcer Present: No Review of Systems - Review of Systems All systems: reviewed and no additional remarkable complaints except (except for what is mentioned in the HPI) Past Patient History - Past Social History Smoking Status: Never Smoked - CARDIAC Hx Hypertension: Yes - RENAL Hx Chronic Kidney Disease: Yes - ENDOCRINE/METABOLIC Hx Diabetes Mellitus Type 2: Yes - MUSCULOSKELETAL/RHEUMATOLOGICAL Hx Falls: No - PSYCHIATRIC Hx Substance Use: No - SURGICAL HISTORY Hx Orthopedic Surgery: Yes (back sx) Other/Comment: "uterine surgery" - ANESTHESIA Hx Anesthesia: Yes Hx Anesthesia Reactions: No Meds Allergies/Adverse Reactions: Allergies Allergy/AdvReac Type Severity Reaction Status Date / Time No Known Allergies Allergy Verified 11/24/16 11:38 Physical Exam - Constitutional Appears: Non-toxic, No Acute Distress, Other (obese) - Head Exam Additional comments: right facial droop - Eye Exam Eye Exam: EOMI, PERRL - ENT Exam ENT Exam: Mucous Membranes Moist - Neck Exam Neck exam: Positive for: Full Rom. Negative for: Lymphadenopathy - Respiratory Exam Respiratory Exam: Clear to Auscultation Bilateral, NORMAL BREATHING PATTERN - Cardiovascular Exam Cardiovascular Exam: REGULAR RHYTHM, +S1, +S2 - GI/Abdominal Exam GI & Abdominal Exam: Normal Bowel Sounds, Soft. absent: Tenderness - Extremities Exam Extremities exam: Positive for: full ROM (strength 3/5 in RUE, 5/5 in LUE and b/ l lower extremities), pedal edema (trace bilaterally) - Back Exam Back exam: absent: CVA tenderness (L), CVA tenderness (R) - Neurological Exam Neurological exam: Alert, Normal Gait, Oriented x3 Additional comments: impaired finger to nose on right side, heel to rosario wnl b/l, CN V/VII affected on right (decreased bite strength, impaired jaw opening, cheek/lip droop) - Psychiatric Exam Psychiatric exam: Normal Affect, Normal Mood - Skin Skin Exam: Dry, Intact, Warm Results - Vital Signs Recent Vital Signs: Last Vital Signs Temp 97.8 F 01/06/17 16:00 Pulse 60 01/06/17 16:00 Resp 19 01/06/17 16:00 BP 144/66 01/06/17 16:00 Pulse Ox 98 01/06/17 16:00 - Labs Result Diagrams: 01/06/17 13:30 01/06/17 13:30 Assessment & Plan - Assessment and Plan (Free Text) Assessment: 71 yr old F admitted for right facial droop and RUE weakness x 4 days, found to have acute CVA on imaging. Neurology is on board, per discussion ASA was discontinued, MRI Neck ordered, Plavix 75mg PO QD started, PT/OT ordered. Acute CVA -right facial droop and RUE weakness x 4 days -CT head: no acute ICH, mild white matter ischemic changes w/ scattered chronic bilateral basal nuclei lacunar type infarcts (see full report) -MRI Head: findings compatible with a 9mm acute lacunar infarct in the left wilson radiata -Neurology consult appreciated-Dr. Shane: will follow recommendations -d/c ASA, start Plavix 75mg PO QD Hypertension -controlled, chronic -continue with home med: Amlodipine 10mg PO QD, Clonidine 0.2 mg PO BID, Hydralazine 25mg PO TID, HCTZ 12.5mg PO QD -monitor BP Acute on Chronic Kidney Disease stage 3B (GFR 30-44 mL/min) -BUN/Cr 40/2.2 GFR 27, not at baseline, likely do to mild dehydration secondary to acute CVA -NS 1L at 125mls/hr -f/u BUN/Cr Anemia -stable, chronic -secondary to anemia of chronic disease (CKD) Bilateral knee pain and LE weakness -stable, chronic -PT eval: continue PT, home with services -Pain management: Lidoderm patch, Tylenol prn, Tramadol prn NIDDM -controlled, HbA1c 7.0 (11/25/16) -Hypoglycemia protocol -continue home meds: Glipizide 10 mg PO QD before breakfast, Glipizide 5mg PO ACD, Atorvastatin 40mg PO QD -Moderate carbohydrate/heart healthy diet, soft mechanical bite size -Humulin SC ACHS moderate dose protocol -lipids: Tri 162/chol 312/LDL 178/ HDL 47 7. DVT prophylaxis -Lovenox 30mg SC QD - Date & Time Date: 01/06/17 Time: 15:00
--- NOTE | 2017-01-06 19:43 | MRI ---
EXAM: MR Head Without Intravenous Contrast CLINICAL HISTORY: 71 years old, female; Signs and symptoms; Other: Rule/out CVA; Additional info: Rule out CVA TECHNIQUE: Magnetic resonance images of the head/brain without intravenous contrast in multiple planes. EXAM DATE/TIME: 01/06/2017 5:28 PM COMPARISON: No relevant prior studies available. FINDINGS: BRAIN: Best seen on image 14 of series 3, there is a 9 mm round focus of restricted diffusion in the left wilson radiata, most compatible with an acute lacunar type infarct. Multiple focal areas of signal abnormality seen in the basal ganglia bilaterally and in the sylvia, with an appearance most compatible with multiple old/chronic lacunar infarcts. Multiple foci of increased T2 signal abnormality in the white matter bilaterally, nonspecific in appearance, but most likely representing chronic small vessel ischemic changes. Multiple foci of hypointense signal seen on the gradient images, with an appearance most compatible with foci of chronic hemorrhage or calcification. No definite signal abnormality to suggest acute intracranial hemorrhage. No evidence of significant mass effect within the brain. No acute extra-axial fluid collections visualized. VENTRICLES: No evidence of significant hydrocephalus. BONES/JOINTS: No acute bony abnormality identified. SINUSES: No evidence of sinus fluid levels. MASTOID AIR CELLS: Mastoid air cells appear clear. ORBITS: No acute intraorbital abnormality seen. IMPRESSION: - Findings compatible with a 9 mm acute lacunar infarct in the left wilson radiata. - See above for remaining findings.
[2017-01-06] MEDS: Sodium Chloride 0.9% 1,000 ML IV SCH (21:34)
[2017-01-06] MEDS: Insulin Regular 100 units/ml SC SCH (22:06)
--- NOTE | 2017-01-07 04:59 | CON ---
DATE: 01/06/2017 NEUROLOGICAL INITIAL CONSULTATION The patient's room number 408, bed 1. REASON FOR CONSULTATION: Right-sided weakness. CHIEF COMPLAINT: The patient was brought into [facility] with a history of new weakness of his right side. From neurologic point of view, I was called in to evaluate her for further management. HISTORY OF PRESENT ILLNESS: Ms. Belinda Garcia is a 71-year-old female presenting with new onset of fall on Wednesday at home since then she has weakness of her right side as well as pain on her right side. The patient also noted to have facial asymmetry from that time onward. Family was thinking that she is going to get better; however, the symptoms not improved. They decided to bring her to the hospital for further management. No history of trauma. No history of involuntary movements associating with this problem. She denies headache. She denies visual and bulbar dysfunction at present. PAST MEDICAL HISTORY: Insignificant to hypertension, non-insulin dependent diabetes mellitus, chronic kidney disease, coronary heart disease, gouty arthritis, chronic lower back pain and did have a laminectomy in [place]. PERSONAL HISTORY: Denies smoking, alcohol use. PAST SURGICAL HISTORY: Hysterectomy, laminectomy and oral surgery. REVIEW OF SYSTEMS: As per H and P. MEDICATIONS: Hydralazine, Catapres, Glucotrol XL, Lipitor, Microzide, Norvasc and clopidogrel. PHYSICAL EXAMINATION: VITAL SIGNS: Blood pressure 177/90, mean arterial pressure of 119, respiratory rate 16 and temperature afebrile. NECK: Supple. No carotid bruits heard on the right side. CARDIOPULMONARY: Regular. EXTREMITIES: Distal muscle group atrophy noted. NEUROLOGIC: The patient is examined in the presence of her family members and the resident. She is awake, alert, and oriented to person, place and time. Speech is clear. Mild dysarthria secondary to her facial asymmetry. Tongue is midline. Good gag. Sensory and motor examination; Outstretched hand with eyes closed. Mild drift noted in the right hand. Muscle strength seems to be intact in both upper and lower extremities. Deep tendon reflexes, hyperreflexic in the both upper extremities more pronounced on the right than her left side. Both knees are absent. Both ankles are absent. Plantars are upgoing on her right side and left side was downgoing. Coordination: Mild dysmetria noted on finger-nose testing on her right side. Gait is deferred at this time. CONCLUSION: Upon reviewing her recent neurological examination, Belinda Garcia presenting with new onset of right hemiparesis consistent with left subcortical dysfunction which is probably secondary to underlying risk factors including menopausal, obesity, hypertension, dyslipidemia, chronic renal failure and non-insulin dependent diabetes mellitus. Her examination also showed evidence of cervical myelopathy because of hyperreflexia in the upper extremities.Bilateral sensorimotor neuropathy. Workup, CT of the head reviewed by me showed no acute pathologies noted. MRI of the brain showed left wilson radiata ischemic process. The patient also showed evidence of bilateral small vessel disease and including sylvia noted. BLOOD WORKUP: WBC 7.3, hemoglobin 11.1, hematocrit 32.7 and platelet 286. PT 11.0. INR 1.0. PTT 31.3. Sodium 138, potassium 3.7, chloride 102, bicarbonate 28, BUN 40 and creatinine 2.2. GFR 27. Glucose 220. EKG normal sinus rhythm. RECOMMENDATION: 1. The patient should be get out of the bed and physical therapy should be started as soon as possible. 2. DVT prophylaxis. 3. The patient has aspirin failure. I would like to put her back in Plavix for stroke prophylaxis, which can include angiotensin receptor blockers and statin should be added. 4. The patient's diabetic control and weight control discussed. Following discharge, the patient should have polysomnogram to rule out Sleep related breathing disorder, which may be a confounding risk factors in addition to her other problems. The patient's condition meanwhile discussed with the resident as well as the family members. John Shane MD [facility]
[2017-01-07] MEDS: Sodium Chloride 0.9% 1,000 ML IV SCH ×3 (05:14→22:14)
[2017-01-07] MEDS: Insulin Regular 100 units/ml SC SCH ×4 (06:47→22:11)
[2017-01-07 07:44] LABS: CALCIUM 10.2 mg/dL (8.4-10.2); POTASSIUM 3.4 MMOL/L (3.6-5.0)
[2017-01-07 08:07] LABS: THYROID STIMULATING HORMONE 1.59 mIU/ML (0.46-4.68)
[2017-01-07] MEDS: Lidocaine 5% Patch TD SCH (09:13)
[2017-01-07] MEDS: Enoxaparin 30 mg Syringe SC SCH (09:13)
[2017-01-07] MEDS: GlipiZIDE 10 mg SR Tab PO SCH (09:16)
--- NOTE | 2017-01-07 10:06 | RAD ---
HISTORY: cough, recent CVA COMPARISON: No prior. TECHNIQUE: Chest PA and lateral FINDINGS: LUNGS: No active pulmonary disease. PLEURA: No significant pleural effusion identified. No pneumothorax apparent. CARDIOVASCULAR: Normal. OSSEOUS STRUCTURES: No significant abnormalities. VISUALIZED UPPER ABDOMEN: Normal. OTHER FINDINGS: None. IMPRESSION: No active disease.
--- NOTE | 2017-01-07 10:36 | CARD ---
APPROVED REPORT EKG Measurement Heart [id number] <Conclusion> Normal sinus rhythm Right bundle branch block Abnormal ECG
--- NOTE | 2017-01-07 11:27 | US ---
PROCEDURE: Bilateral duplex Doppler carotid arterial ultrasound HISTORY: cva COMPARISON: Not available TECHNIQUE: Ultrasound examination was performed throughout the carotid vessels bilaterally utilizing a linear array color Doppler transducer. FINDINGS: RIGHT CAROTID ARTERY: Intimal thickening in distal CCA. Minimal calcified atheromatous plaque in the internal carotid artery. Tortuous internal carotid artery noted. Peak systolic velocity measurements: ICA: 205 cm/sec CCA: 116.2 cm/sec ICA/CCA peak systolic velocity ratio: 1.8 Antegrade flow demonstrated in right vertebral artery LEFT CAROTID ARTERY: Intimal thickening in distal CCA. Noncalcified atheromatous plaque noted in the internal carotid artery. Tortuous internal carotid artery. Peak systolic velocity measurements: CCA: 110.8 cm/sec ICA: 182.7 cm/sec ICA/CCA peak systolic velocity ratio: 1.6 Antegrade flow demonstrated in vertebral artery IMPRESSION: 50-69 percent ICA stenosis bilaterally by hemodynamic criteria. Antegrade flow demonstrated in both vertebral arteries.
--- NOTE | 2017-01-07 11:36 | CP.PCM.PN ---
Subjective - Date & Time of Evaluation Date of Evaluation: 01/07/17 Time of Evaluation: 07:30 - Subjective Subjective: Interpretor # [id number] Patient seen and examined at bedside, no acute events overnight. RUE weakness and right facial droop persists. Tolerating PO diet. Has normal urine output. Reports no bowel movement in 4 days. Objective - Vital Signs/Intake and Output Vital Signs (last 24 hours): Temp Pulse Resp BP Pulse Ox 98.7 F 81 20 171/79 H 96 01/07/17 08:00 01/07/17 09:19 01/07/17 08:00 01/07/17 09:19 01/07/17 08:00 - Medications Medications: Current Medications Acetaminophen (Tylenol 325mg Tab) 650 mg PO Q6 PRN PRN Reason: Pain, Mild (1-3) Amlodipine Besylate (Norvasc) 10 mg PO DAILY [facility] Last Admin: 01/07/17 09:19 Dose: 10 mg Atorvastatin Calcium (Lipitor) 40 mg PO DAILY [facility] Last Admin: 01/07/17 09:16 Dose: 40 mg Clonidine HCl (Catapres) 0.2 mg PO BID [facility] Last Admin: 01/07/17 09:16 Dose: 0.2 mg Clopidogrel Bisulfate (Plavix) 75 mg PO DAILY [facility] Last Admin: 01/07/17 09:15 Dose: 75 mg Enoxaparin Sodium (Lovenox) 30 mg SC DAILY [facility] PRN Reason: Protocol Last Admin: 01/07/17 09:13 Dose: 30 mg Glipizide (Glucotrol) 5 mg PO QPM [facility] Last Admin: 01/06/17 20:17 Dose: 5 mg Glipizide (Glucotrol Xl) 10 mg PO QAM [facility] Last Admin: 01/07/17 09:16 Dose: 10 mg Hydralazine HCl (Apresoline) 25 mg PO TID [facility] Last Admin: 01/07/17 09:14 Dose: 25 mg Hydrochlorothiazide (Microzide) 12.5 mg PO DAILY [facility] Last Admin: 01/07/17 09:18 Dose: 12.5 mg Sodium Chloride (Sodium Chloride 0.9%) 1,000 mls @ 125 mls/hr IV .Q8H [facility] Stop: 01/07/17 21:14 Last Admin: 01/06/17 21:34 Dose: 125 mls/hr Insulin Human Regular (Humulin R) 0 units SC ACHS [facility] PRN Reason: Protocol Last Admin: 01/07/17 06:47 Dose: Not Given Lidocaine (Lidoderm) 1 ea TD DAILY [facility] Last Admin: 01/07/17 09:13 Dose: 1 ea Senna/Docusate Sodium (Senokot S 50 Mg-8.6 Mg) 2 tab PO HS [facility] Tramadol HCl (Ultram) 50 mg PO Q4 PRN PRN Reason: Pain, moderate (4-7) - Labs Labs: 01/07/17 06:00 PT 11.0 Seconds (9.8-13.1) 01/06/17 13:30 INR 1.0 (0.9-1.2) 01/06/17 13:30 APTT 31.3 Seconds (25.6-37.1) 01/06/17 13:30 - Constitutional Appears: Non-toxic - Head Exam Head Exam: ATRAUMATIC Additional comments: right facial droop (cheek and lip) - Eye Exam Eye Exam: EOMI, PERRL - ENT Exam ENT Exam: Mucous Membranes Moist - Neck Exam Neck Exam: Full ROM - Respiratory Exam Respiratory Exam: Clear to Ausculation Bilateral, NORMAL BREATHING PATTERN - Cardiovascular Exam Cardiovascular Exam: REGULAR RHYTHM, +S1, +S2 - GI/Abdominal Exam GI & Abdominal Exam: Soft (obese), Normal Bowel Sounds. absent: Tenderness - Extremities Exam Extremities Exam: Full ROM (strength 3/5 in RUE, 5/5 in LUE and b/l lower extremities), Pedal Edema (trace in b/l LE) - Back Exam Back Exam: absent: CVA tenderness (L), CVA tenderness (R) - Neurological Exam Neurological Exam: Alert, Awake - Psychiatric Exam Psychiatric exam: Normal Affect, Normal Mood - Skin Skin Exam: Dry, Intact, Warm Assessment and Plan - Assessment and Plan (Free Text) Assessment: 71 yr old F admitted for right facial droop and RUE weakness x 4 days, found to have acute CVA on imaging. Neurology is on board, per discussion ASA was discontinued, MRI Neck ordered, Plavix 75mg PO QD started, PT/OT ordered. Patients RUE weakness and right facial droop persists. Acute CVA -right facial droop and RUE weakness x 4 days -CT head: no acute ICH, mild white matter ischemic changes w/ scattered chronic bilateral basal nuclei lacunar type infarcts (see full report) -MRI Head: findings compatible with a 9mm acute lacunar infarct in the left wilson radiata -Neurology consult appreciated-Dr. Shane: will follow recommendations -d/c ASA, start Plavix 75mg PO QD -f/u MRI neck Hypokalemia -K+ 3.4 -KCl 20Meq PO once Hypertension -uncontrolled, chronic -continue with home med: Amlodipine 10mg PO QD, Clonidine 0.2 mg PO BID, Hydralazine 25mg PO TID, HCTZ 12.5mg PO QD -monitor BP Acute on Chronic Kidney Disease stage 3B (GFR 30-44 mL/min) -BUN/Cr 30/1.8 GFR 28, likely do to mild dehydration secondary to acute CVA -NS 1L at 125mls/hr -f/u BUN/Cr Anemia -stable, chronic -secondary to anemia of chronic disease (CKD) Bilateral knee pain and LE weakness -stable, chronic -PT eval: continue PT, home with services -Pain management: Lidoderm patch, Tylenol prn, Tramadol prn NIDDM -controlled, HbA1c 7.0 (11/25/16) -Hypoglycemia protocol -continue home meds: Glipizide 10 mg PO QD before breakfast, Glipizide 5mg PO ACD, Atorvastatin 40mg PO QD -Moderate carbohydrate/heart healthy diet, soft mechanical bite size -Humulin SC ACHS moderate dose protocol -lipids: Tri 162/chol 312/LDL 178/ HDL 47 7. DVT prophylaxis -Lovenox 30mg SC QD
[2017-01-07] MEDS ORDERED: Potassium Chloride 20 mEq ER Tab PO ONE (11:47)
[2017-01-07 13:29] LABS: FOLATE 5.4 ng/mL
[2017-01-07] MEDS: Docusate-Senna 50 mg-8.6 mg Tab PO SCH (13:32)
[2017-01-07 16:26] LABS: CHOLESTEROL 199 mg/dL (0-199)
[2017-01-08 05:45] LABS: HOMOCYSTEINE 23.5 umol/L (<10.4)
[2017-01-08] MEDS: Insulin Regular 100 units/ml SC SCH ×4 (06:37→21:59)
[2017-01-08] MEDS: GlipiZIDE 10 mg SR Tab PO SCH (09:08)
[2017-01-08] MEDS: Lidocaine 5% Patch TD SCH (09:09)
--- NOTE | 2017-01-08 10:14 | CP.PCM.PN ---
Subjective - Date & Time of Evaluation Date of Evaluation: 01/08/17 Time of Evaluation: 08:00 - Subjective Subjective: Interpretor # [id number] (language: Maltese) Patient seen and examined at bedside. In no acute distress. Reports right hand weakness persists as well as her lips and cheek moving to the left when she talks or eats. Patient tearfully states she is concerned about not recuperating her right hand strength and right lip/cheek position. Reassured patient it takes time regain function and PT/OT will assess and help her. Denies chest pain , SOB, dizziness or headaches. Patient is tolerating PO diet, has normal urine and stool output. Objective - Vital Signs/Intake and Output Vital Signs (last 24 hours): Temp Pulse Resp BP Pulse Ox 98.7 F 57 L 20 155/80 H 99 01/08/17 08:00 01/08/17 09:09 01/08/17 08:00 01/08/17 09:09 01/08/17 08:00 Intake and Output: 01/08/17 01/08/17 06:59 18:59 Intake Total 2200 Output Total 0 Balance 2200 - Medications Medications: Current Medications Acetaminophen (Tylenol 325mg Tab) 650 mg PO Q6 PRN PRN Reason: Pain, Mild (1-3) Last Admin: 01/08/17 03:12 Dose: 650 mg Amlodipine Besylate (Norvasc) 10 mg PO DAILY [facility] Last Admin: 01/08/17 09:09 Dose: 10 mg Atorvastatin Calcium (Lipitor) 40 mg PO DAILY [facility] Last Admin: 01/08/17 09:11 Dose: 40 mg Clonidine HCl (Catapres) 0.2 mg PO BID [facility] Last Admin: 01/08/17 09:08 Dose: 0.2 mg Clopidogrel Bisulfate (Plavix) 75 mg PO DAILY [facility] Last Admin: 01/08/17 09:14 Dose: 75 mg Enoxaparin Sodium (Lovenox) 30 mg SC DAILY [facility] PRN Reason: Protocol Last Admin: 01/07/17 09:13 Dose: 30 mg Glipizide (Glucotrol) 5 mg PO QPM [facility] Last Admin: 01/07/17 18:32 Dose: 5 mg Glipizide (Glucotrol Xl) 10 mg PO QAM [facility] Last Admin: 01/08/17 09:08 Dose: 10 mg Hydralazine HCl (Apresoline) 25 mg PO TID [facility] Last Admin: 01/08/17 09:08 Dose: 25 mg Hydrochlorothiazide (Hydrodiuril) 25 mg PO DAILY [facility] Last Admin: 01/08/17 09:11 Dose: 25 mg Insulin Human Regular (Humulin R) 0 units SC ACHS [facility] PRN Reason: Protocol Last Admin: 01/08/17 06:37 Dose: Not Given Lidocaine (Lidoderm) 1 ea TD DAILY [facility] Last Admin: 01/08/17 09:09 Dose: 1 ea Senna/Docusate Sodium (Senokot S 50 Mg-8.6 Mg) 2 tab PO HS [facility] Last Admin: 01/07/17 13:32 Dose: 2 tab Tramadol HCl (Ultram) 50 mg PO Q4 PRN PRN Reason: Pain, moderate (4-7) Last Admin: 01/08/17 09:10 Dose: 50 mg - Labs Labs: 01/07/17 06:00 PT 11.0 Seconds (9.8-13.1) 01/06/17 13:30 INR 1.0 (0.9-1.2) 01/06/17 13:30 APTT 31.3 Seconds (25.6-37.1) 01/06/17 13:30 - Constitutional Appears: Non-toxic, No Acute Distress - Head Exam Head Exam: ATRAUMATIC, NORMOCEPHALIC Additional comments: right facial droop (cheek and lips) - Eye Exam Eye Exam: EOMI, PERRL - ENT Exam ENT Exam: Mucous Membranes Moist - Neck Exam Neck Exam: Full ROM - Respiratory Exam Respiratory Exam: Clear to Ausculation Bilateral, NORMAL BREATHING PATTERN - Cardiovascular Exam Cardiovascular Exam: REGULAR RHYTHM, +S1, +S2 - GI/Abdominal Exam GI & Abdominal Exam: Soft (obese), Normal Bowel Sounds. absent: Distended, Tenderness - Extremities Exam Extremities Exam: Full ROM (strength 3/5 in RUE, 5/5 in LUE and b/l lower extremities), Pedal Edema (trace in b/l LE) - Back Exam Back Exam: absent: CVA tenderness (L), CVA tenderness (R) - Neurological Exam Neurological Exam: Alert, Awake, Oriented x3 - Psychiatric Exam Psychiatric exam: Depressed, Flat Affect - Skin Skin Exam: Intact, Warm Assessment and Plan - Assessment and Plan (Free Text) Assessment: 71 yr old F admitted for right facial droop and RUE weakness x 4 days, found to have acute CVA on imaging. Neurology is on board, per discussion ASA was discontinued, MRI Neck ordered, Plavix 75mg PO QD started, PT/OT ordered. Acute CVA -right facial droop and RUE weakness x 4 days -CT head: no acute ICH, mild white matter ischemic changes w/ scattered chronic bilateral basal nuclei lacunar type infarcts (see full report) -MRI Head: findings compatible with a 9mm acute lacunar infarct in the left wilson radiata -Neurology consult appreciated-Dr. Shane: will follow recommendations -d/c ASA, start Plavix 75mg PO QD Hypertension -controlled, chronic -continue with home med: Amlodipine 10mg PO QD, Clonidine 0.2 mg PO BID, Hydralazine 25mg PO TID, adjusted HCTZ 25mg PO QD -ACEi not started due to possible adverse effect on pt's CKD -monitor BP Chronic Kidney Disease stage 3B (GFR 30-44 mL/min) -BUN/Cr 30/1.8 GFR 33, at baseline -d/c NS 1L at 125mls/hr -avoid nephrotoxic drugs Anemia -stable, chronic -secondary to anemia of chronic disease (CKD) Bilateral knee pain and LE weakness -stable, chronic -PT eval: continue PT, home with services -Pain management: Lidoderm patch, Tylenol prn, Tramadol prn NIDDM -controlled, HbA1c 7.0 (11/25/16) -Hypoglycemia protocol -continue home meds: Glipizide 10 mg PO QD before breakfast, Glipizide 5mg PO ACD, Atorvastatin 40mg PO QD -Moderate carbohydrate/heart healthy diet, soft mechanical bite size -Humulin SC ACHS moderate dose protocol -lipids: Tri 162/chol 312/LDL 178/ HDL 47 7. DVT prophylaxis -Lovenox 30mg SC QD
--- NOTE | 2017-01-08 10:32 | MRI ---
PROCEDURE: MR CERVICAL SPINE WITHOUT CONTRAST HISTORY: recent CVA, now with bilateral UE hyperreflexia COMPARISON: None available. TECHNIQUE: Multiecho multiplanar sequences were performed through the cervical spine without the use of intravenous contrast. FINDINGS: Normal lordotic curvature. There is mild straightening of the cervical spine which could be due to muscle spasm. Craniocervical junction unremarkable. Vertebral body heights preserved. No marrow signal abnormality. There is focal hyperintense cyst T2 signal at the posterior aspect of T2 without evidence of cortical destruction may represent hemangioma. Normal cervical cord. No paraspinal abnormality. C2-C3: No disc herniation, spinal canal stenosis or neural foraminal narrowing. C3-C4: There is a broad-based disc bulging seen associated with mild posterior ligament hypertrophy without evidence of significant spinal or neural foraminal narrowing. C4-C5: There is a small to moderate size disc protrusion associated with mild posterior ligament hypertrophy which resulting mild to moderate spinal stenosis. No evidence of significant neural foraminal narrowing. C5-C6: There is a small to moderate size osteophyte disc bulging complex at C5-C6 associated with mild posterior ligament hypertrophy which resulting in [id number] spinal stenosis. There is [id number] left neural foraminal narrowing and mild right neural foraminal narrowing. C6-C7: Small to moderate-sized disc bulging associated with posterior ligament hypertrophy which resulting in mild spinal stenosis. There is mild bilateral neural foraminal narrowing. C7-T1: No disc herniation, spinal canal stenosis or neural foraminal narrowing. OTHER FINDINGS: None. IMPRESSION: Straightening of the cervical spine which could be due to muscle spasm. Moderate spondylosis more prominent at C4-C5 and C5-C6. Multilevel disc protrusion osteophyte complex associated with mild to moderate spinal stenosis more prominent at C4-C5 and C5-C6. [id number] left neural foramina narrowing and mild right neural foraminal stenosis seen at C5-C6. Preliminary report was submitted by [facility].
[2017-01-08] MEDS: Enoxaparin 30 mg Syringe SC SCH (10:33)
[2017-01-08] MEDS: Docusate-Senna 50 mg-8.6 mg Tab PO SCH (21:36)
--- NOTE | 2017-01-09 01:45 | PN ---
NEUROLOGICAL PROBLEM: Left subcortical stroke manifesting with right hemiparesis. PHYSICAL EXAMINATION: VITAL SIGNS: Blood pressure 132/75, pulse is 72, respiratory rate 16 and temperature afebrile. NEUROLOGIC: The patient is more awake, alert, and oriented to person and place. She is able to tolerate p.o. food. Examination showed a right hemiparesis, which is unchanged. Her workup including MRI of the brain consistent with left subcortical stroke in wilson radiata. MRI of the cervical spine no myelopathy noted. Electroencephalogram program shows normal electroencephalogram program activities for her age. No paroxysmal activities or focal slowing noted. RECOMMENDATION: Continue antiplatelets with blood pressure medication and statin. The patient should be getting out of the bed, weight reduction and diabetes control and blood pressure control, all have been discussed with the patient and with her son yesterday. The patient will be followed if necessary. John Shane MD
[2017-01-09] MEDS: Insulin Regular 100 units/ml SC SCH ×4 (06:39→21:27)
[2017-01-09] MEDS: Enoxaparin 30 mg Syringe SC SCH (08:35)
[2017-01-09] MEDS: Lidocaine 5% Patch TD SCH ×2 (08:36→19:06)
--- NOTE | 2017-01-09 11:05 | CP.PCM.PN ---
Subjective - Date & Time of Evaluation Date of Evaluation: 01/09/17 Time of Evaluation: 08:30 - Subjective Subjective: Language : Icelandic , Interpretor: [id number] Patient seen and examined at bedside. No acute events overnight. Right hand weakness and right facial droop persists. Ambulates with assistance, reports she has stairs at home and is afraid to walk at times due to her multiple recent falls prior to hospitalization. Denies chest pain, dizziness or SOB. Has normal urine and stool output. Patient was able to walk 30 feet with PT assistance. Objective - Vital Signs/Intake and Output Vital Signs (last 24 hours): Temp Pulse Resp BP Pulse Ox 98.7 F 76 18 142/85 100 01/09/17 08:00 01/09/17 08:36 01/09/17 08:00 01/09/17 08:36 01/09/17 08:00 - Medications Medications: Current Medications Acetaminophen (Tylenol 325mg Tab) 650 mg PO Q6 PRN PRN Reason: Pain, Mild (1-3) Last Admin: 01/08/17 03:12 Dose: 650 mg Amlodipine Besylate (Norvasc) 10 mg PO DAILY [facility] Last Admin: 01/09/17 08:36 Dose: 10 mg Atorvastatin Calcium (Lipitor) 40 mg PO DAILY [facility] Last Admin: 01/09/17 08:36 Dose: 40 mg Clonidine HCl (Catapres) 0.2 mg PO BID [facility] Last Admin: 01/08/17 16:16 Dose: 0.2 mg Clopidogrel Bisulfate (Plavix) 75 mg PO DAILY [facility] Last Admin: 01/09/17 08:36 Dose: 75 mg Enoxaparin Sodium (Lovenox) 30 mg SC DAILY [facility] PRN Reason: Protocol Last Admin: 01/09/17 08:35 Dose: 30 mg Folic Acid (Folic Acid) 1 mg PO DAILY [facility] Last Admin: 01/09/17 08:35 Dose: 1 mg Glipizide (Glucotrol) 5 mg PO QPM [facility] Last Admin: 01/08/17 18:04 Dose: 5 mg Glipizide (Glucotrol Xl) 10 mg PO QAM [facility] Last Admin: 01/08/17 09:08 Dose: 10 mg Hydralazine HCl (Apresoline) 25 mg PO TID [facility] Last Admin: 01/09/17 08:35 Dose: 25 mg Hydrochlorothiazide (Hydrodiuril) 25 mg PO DAILY [facility] Last Admin: 01/09/17 08:36 Dose: 25 mg Insulin Human Regular (Humulin R) 0 units SC ACHS [facility] PRN Reason: Protocol Last Admin: 01/09/17 06:39 Dose: 2 unit Lidocaine (Lidoderm) 1 ea TD DAILY [facility] Last Admin: 01/09/17 08:36 Dose: 1 ea Senna/Docusate Sodium (Senokot S 50 Mg-8.6 Mg) 2 tab PO HS [facility] Last Admin: 01/08/17 21:36 Dose: 2 tab Tramadol HCl (Ultram) 50 mg PO Q4 PRN PRN Reason: Pain, moderate (4-7) Last Admin: 01/08/17 09:10 Dose: 50 mg - Labs Labs: 01/07/17 06:00 PT 11.0 Seconds (9.8-13.1) 01/06/17 13:30 INR 1.0 (0.9-1.2) 01/06/17 13:30 APTT 31.3 Seconds (25.6-37.1) 01/06/17 13:30 - Constitutional Appears: Non-toxic, No Acute Distress - Head Exam Head Exam: ATRAUMATIC Additional comments: right facial droop (cheek and lips) - Eye Exam Eye Exam: EOMI, PERRL - ENT Exam ENT Exam: Mucous Membranes Moist - Respiratory Exam Respiratory Exam: Clear to Ausculation Bilateral, NORMAL BREATHING PATTERN - Cardiovascular Exam Cardiovascular Exam: REGULAR RHYTHM, +S1, +S2 - GI/Abdominal Exam GI & Abdominal Exam: Soft (obese), Normal Bowel Sounds. absent: Distended, Tenderness - Extremities Exam Extremities Exam: Full ROM (strength 3/5 in RUE, 5/5 in LUE and b/l lower extremities), Pedal Edema (trace in b/l LE) - Back Exam Back Exam: absent: CVA tenderness (L), CVA tenderness (R) - Neurological Exam Neurological Exam: Alert, Awake - Psychiatric Exam Psychiatric exam: Normal Affect, Normal Mood - Skin Skin Exam: Dry, Intact, Warm Assessment and Plan - Assessment and Plan (Free Text) Assessment: 71 yr old F admitted for right facial droop and RUE weakness x 4 days, found to have acute CVA on imaging. Neurology is on board, PT/OT recommends acute rehab, pt was able to walk 30 ft yesterday with PT. Right facial droop and right hand weakness persists. Acute CVA -right facial droop and RUE weakness -CT head: no acute ICH, mild white matter ischemic changes w/ scattered chronic bilateral basal nuclei lacunar type infarcts (see full report) -MRI Head: findings compatible with a 9mm acute lacunar infarct in the left wilson radiata -MRI cervical spine: multilevel disc protrusion with associated mild to moderate spinal stenosis prominent at C4-C5 and C5-C6 , no myelopathy. -Neurology consult appreciated-Dr. Shane: will follow recommendations -d/c ASA, start Plavix 75mg PO QD Hypertension -controlled, chronic -continue with home med: Amlodipine 10mg PO QD, Clonidine 0.2 mg PO BID, Hydralazine 25mg PO TID, adjusted HCTZ 25mg PO QD -ACEi not started due to possible adverse effect on pt's CKD -monitor BP Chronic Kidney Disease stage 3B (GFR 30-44 mL/min) -BUN/Cr 30/1.8 GFR 33, at baseline -d/c NS 1L at 125mls/hr -avoid nephrotoxic drugs Anemia -stable, chronic -secondary to anemia of chronic disease (CKD) Bilateral knee pain and LE weakness -stable, chronic -PT eval: continue PT, acute rehab recommended -Pain management: Lidoderm patch, Tylenol prn, Tramadol prn NIDDM -controlled, HbA1c 7.0 (11/25/16) -Hypoglycemia protocol -continue home meds: Glipizide 10 mg PO QD before breakfast, Glipizide 5mg PO ACD, Atorvastatin 40mg PO QD -Moderate carbohydrate/heart healthy diet, soft mechanical bite size -Humulin SC ACHS moderate dose protocol -lipids: Tri 162/chol 312/LDL 178/ HDL 47 DVT prophylaxis -Lovenox 30mg SC QD
[2017-01-09] MEDS: GlipiZIDE 10 mg SR Tab PO SCH (12:00)
--- NOTE | 2017-01-09 15:40 | EEG ---
DATE: 01/06/2017 This is a 16-channel electroencephalogram of awake and drowsy adult. During the study, photic stimulation was performed, hyperventilation was not performed. The resting electroencephalogram consists of 5-7 Hz, 30-40 microvolt theta activities noted at parietal and occipital leads. Anteriorly, fast activities activities superimposed with 2-3 Hz. Delta activities seen in frontal and central leads. The slow activity is continuously noted from the beginning and eye movement artifact contaminated to the background rhythm. The photic stimulation did not develop any response noted under 2-20 Hz. Rest of the time, these activities of 9-11 Hz alpha activities noted at parietal and occipital leads in addition to her intermittent delta activities consistent with drowsiness. IMPRESSION: This is a normal electroencephalogram of awake and drowsy adult. During the study, neither electroencephalographic paroxysmal activities nor focal slowing noted. John Shane MD [facility]
[2017-01-09] MEDS: Docusate-Senna 50 mg-8.6 mg Tab PO SCH (21:25)
[2017-01-10] MEDS: Insulin Regular 100 units/ml SC SCH ×4 (09:03→21:45)
[2017-01-10] MEDS: GlipiZIDE 10 mg SR Tab PO SCH (09:04)
[2017-01-10] MEDS: Enoxaparin 30 mg Syringe SC SCH (09:06)
[2017-01-10] MEDS: Lidocaine 5% Patch TD SCH (09:07)
--- NOTE | 2017-01-10 12:46 | CP.PCM.PN ---
Subjective - Date & Time of Evaluation Date of Evaluation: 01/10/17 Time of Evaluation: 08:55 - Subjective Subjective: interpretor line: Language - Gloria Pt seen and examined at bedside, doing OK. Had good pt session yesterday even with her knee pain, states it went well. Right sided facial droop persist. pt overall is in good spirits today. Nurses notes and PT notes reviewed Objective - Vital Signs/Intake and Output Vital Signs (last 24 hours): Temp Pulse Resp BP Pulse Ox 97.9 F 73 20 156/86 H 100 01/10/17 08:00 01/10/17 09:05 01/10/17 08:00 01/10/17 09:05 01/10/17 08:00 - Medications Medications: Current Medications Acetaminophen (Tylenol 325mg Tab) 650 mg PO Q6 PRN PRN Reason: Pain, Mild (1-3) Last Admin: 01/08/17 03:12 Dose: 650 mg Amlodipine Besylate (Norvasc) 10 mg PO DAILY [facility] Last Admin: 01/10/17 09:05 Dose: 10 mg Atorvastatin Calcium (Lipitor) 40 mg PO DAILY [facility] Last Admin: 01/10/17 09:06 Dose: 40 mg Clonidine HCl (Catapres) 0.2 mg PO BID [facility] Last Admin: 01/10/17 09:05 Dose: 0.2 mg Clopidogrel Bisulfate (Plavix) 75 mg PO DAILY [facility] Last Admin: 01/10/17 09:04 Dose: 75 mg Enoxaparin Sodium (Lovenox) 30 mg SC DAILY [facility] PRN Reason: Protocol Last Admin: 01/10/17 09:06 Dose: 30 mg Folic Acid (Folic Acid) 1 mg PO DAILY [facility] Last Admin: 01/10/17 09:05 Dose: 1 mg Glipizide (Glucotrol) 5 mg PO QPM [facility] Last Admin: 01/09/17 17:10 Dose: 5 mg Glipizide (Glucotrol Xl) 10 mg PO QAM [facility] Last Admin: 01/10/17 09:04 Dose: 10 mg Hydralazine HCl (Apresoline) 25 mg PO TID [facility] Last Admin: 01/10/17 09:04 Dose: 25 mg Hydrochlorothiazide (Hydrodiuril) 25 mg PO DAILY [facility] Last Admin: 01/10/17 09:04 Dose: 25 mg Insulin Human Regular (Humulin R) 0 units SC ACHS [facility] PRN Reason: Protocol Last Admin: 01/10/17 09:03 Dose: 2 unit Lidocaine (Lidoderm) 2 ea TD DAILY [facility] Last Admin: 01/10/17 09:07 Dose: 2 ea Senna/Docusate Sodium (Senokot S 50 Mg-8.6 Mg) 2 tab PO HS [facility] Last Admin: 01/09/17 21:25 Dose: 2 tab Tramadol HCl (Ultram) 50 mg PO Q4 PRN PRN Reason: Pain, moderate (4-7) Last Admin: 01/10/17 09:02 Dose: 50 mg - Labs Labs: 01/07/17 06:00 PT 11.0 Seconds (9.8-13.1) 01/06/17 13:30 INR 1.0 (0.9-1.2) 01/06/17 13:30 APTT 31.3 Seconds (25.6-37.1) 01/06/17 13:30 - Constitutional Appears: Non-toxic, No Acute Distress - Eye Exam Eye Exam: EOMI - ENT Exam ENT Exam: Mucous Membranes Moist - Respiratory Exam Respiratory Exam: Clear to Ausculation Bilateral, NORMAL BREATHING PATTERN. absent: Wheezes - Cardiovascular Exam Cardiovascular Exam: REGULAR RHYTHM, +S1, +S2 - GI/Abdominal Exam GI & Abdominal Exam: Soft, Normal Bowel Sounds. absent: Tenderness - Extremities Exam Extremities Exam: absent: Calf Tenderness, Pedal Edema - Neurological Exam Neurological Exam: Alert, Awake Neuro motor strength exam: Right Upper Extremity: 2/ Assessment and Plan - Assessment and Plan (Free Text) Assessment: 71 yr old F admitted for right facial droop and RUE weakness x 4 days, found to have acute CVA on imaging. Neurology is on board, PT/OT recommends acute rehab, pt was able to walk with PT . Right facial droop and right hand weakness persists. Acute CVA -right facial droop and RUE weakness -CT head: no acute ICH, mild white matter ischemic changes w/ scattered chronic bilateral basal nuclei lacunar type infarcts (see full report) -MRI Head: findings compatible with a 9mm acute lacunar infarct in the left wilson radiata -MRI cervical spine: multilevel disc protrusion with associated mild to moderate spinal stenosis prominent at C4-C5 and C5-C6 , no myelopathy. -Neurology consult appreciated-Dr. Shane: will follow recommendations -d/c ASA, start Plavix 75mg PO QD Hypertension -controlled, chronic -continue with home med: Amlodipine 10mg PO QD, Clonidine 0.2 mg PO BID, Hydralazine 25mg PO TID, adjusted HCTZ 25mg PO QD -ACEi not started due to possible adverse effect on pt's CKD -monitor BP Chronic Kidney Disease stage 3B (GFR 30-44 mL/min) -BUN/Cr 30/1.8 GFR 33, at baseline -d/c NS 1L at 125mls/hr -avoid nephrotoxic drugs Anemia -stable, chronic -secondary to anemia of chronic disease (CKD) Bilateral knee pain and LE weakness -stable, chronic -PT eval: continue PT, acute rehab recommended -Pain management: Lidoderm patch, Tylenol prn, Tramadol prn NIDDM -controlled, HbA1c 7.0 (11/25/16) -Hypoglycemia protocol -continue home meds: Glipizide 10 mg PO QD before breakfast, Glipizide 5mg PO ACD, Atorvastatin 40mg PO QD -Moderate carbohydrate/heart healthy diet, soft mechanical bite size -Humulin SC ACHS moderate dose protocol -lipids: Tri 162/chol 312/LDL 178/ HDL 47 DVT prophylaxis -Lovenox 30mg SC QD
[2017-01-10] MEDS: Docusate-Senna 50 mg-8.6 mg Tab PO SCH (21:43)
--- NOTE | 2017-01-11 09:40 | CP.PCM.PN ---
Subjective - Date & Time of Evaluation Date of Evaluation: 01/11/17 Time of Evaluation: 08:00 - Subjective Subjective: Language Occitan Program Consultant [id number] Pt seen and evaluated at bedside, reports that she is feeling much better today with increased strength in her right upper extremity. She notes that she can now use her right hand to eat and brush her teeth although it is a bit difficult. She reports that she is pleased with her progress and looks forward to continued progress in the near future. Today she complained of having chills and cough in addition to her chronic knee pain. She stated that she had a good appetite. She denies any nausea, vomiting, diarrhea, constipation, or chest pain. Nurses notes and overnight events reviewed Objective - Vital Signs/Intake and Output Vital Signs (last 24 hours): Temp Pulse Resp BP Pulse Ox 97.8 F 59 L 20 151/74 H 99 01/11/17 08:00 01/11/17 08:00 01/11/17 08:00 01/11/17 08:00 01/11/17 08:00 - Medications Medications: Current Medications Acetaminophen (Tylenol 325mg Tab) 650 mg PO Q6 PRN PRN Reason: Pain, Mild (1-3) Last Admin: 01/08/17 03:12 Dose: 650 mg Amlodipine Besylate (Norvasc) 10 mg PO DAILY [facility] Last Admin: 01/10/17 09:05 Dose: 10 mg Atorvastatin Calcium (Lipitor) 40 mg PO DAILY [facility] Last Admin: 01/10/17 09:06 Dose: 40 mg Clonidine HCl (Catapres) 0.2 mg PO BID [facility] Last Admin: 01/10/17 17:31 Dose: 0.2 mg Clopidogrel Bisulfate (Plavix) 75 mg PO DAILY [facility] Last Admin: 01/10/17 09:04 Dose: 75 mg Enoxaparin Sodium (Lovenox) 30 mg SC DAILY [facility] PRN Reason: Protocol Last Admin: 01/10/17 09:06 Dose: 30 mg Folic Acid (Folic Acid) 1 mg PO DAILY [facility] Last Admin: 01/10/17 09:05 Dose: 1 mg Glipizide (Glucotrol) 5 mg PO QPM [facility] Last Admin: 01/10/17 17:31 Dose: 5 mg Glipizide (Glucotrol Xl) 10 mg PO QAM [facility] Last Admin: 01/10/17 09:04 Dose: 10 mg Hydralazine HCl (Apresoline) 25 mg PO TID [facility] Last Admin: 01/10/17 17:31 Dose: 25 mg Hydrochlorothiazide (Hydrodiuril) 25 mg PO DAILY [facility] Last Admin: 01/10/17 09:04 Dose: 25 mg Insulin Human Regular (Humulin R) 0 units SC ACHS [facility] PRN Reason: Protocol Last Admin: 01/10/17 21:45 Dose: Not Given Lidocaine (Lidoderm) 2 ea TD DAILY [facility] Last Admin: 01/10/17 09:07 Dose: 2 ea Senna/Docusate Sodium (Senokot S 50 Mg-8.6 Mg) 2 tab PO HS [facility] Last Admin: 01/10/17 21:43 Dose: 2 tab Tramadol HCl (Ultram) 50 mg PO Q4 PRN PRN Reason: Pain, moderate (4-7) Last Admin: 01/10/17 09:02 Dose: 50 mg - Labs Labs: 01/07/17 06:00 PT 11.0 Seconds (9.8-13.1) 01/06/17 13:30 INR 1.0 (0.9-1.2) 01/06/17 13:30 APTT 31.3 Seconds (25.6-37.1) 01/06/17 13:30 - Constitutional Appears: Well, No Acute Distress - Head Exam Head Exam: ATRAUMATIC Additional comments: Right sided facial droop still present. Appears to be improved compared to admission. - Eye Exam Pupil Exam: PERRL - ENT Exam ENT Exam: Mucous Membranes Dry - Respiratory Exam Respiratory Exam: Clear to Ausculation Bilateral, NORMAL BREATHING PATTERN - Cardiovascular Exam Cardiovascular Exam: REGULAR RHYTHM, +S1, +S2 - GI/Abdominal Exam Additional comments: Bowel sounds present upon auscultation. No tenderness upon palpation. - Extremities Exam Extremities Exam: Pedal Edema Additional comments: Decreased range of motion due to her chronic knee pain bilaterally. - Neurological Exam Neuro motor strength exam: Left Upper Extremity: 5, Right Upper Extremity: 4 ( Improved. ), Left Lower Extremity: 5, Right Lower Extremity: 5 - Skin Skin Exam: Normal Color, Warm Assessment and Plan - Assessment and Plan (Free Text) Assessment: The patient is a 71 yo F with a medical history significant for Diabetes and HTN who presented 5 days ago with right sided facial droop and RUE motor deficits. MRI showed acute lacunar infarct of the wilson radiata. The patient has been receiving PT and OT and has noted significant improvement in her symptoms. Plan: Acute CVA -right facial droop and RUE weakness -CT head: no acute ICH, mild white matter ischemic changes w/ scattered chronic bilateral basal nuclei lacunar type infarcts (see full report) -MRI Head: findings compatible with a 9mm acute lacunar infarct in the left wilson radiata -MRI cervical spine: multilevel disc protrusion with associated mild to moderate spinal stenosis prominent at C4-C5 and C5-C6 , no myelopathy. -Neurology consult appreciated-Dr. Shane: will follow recommendations -continue Plavix 75mg PO QD Hypertension -controlled, chronic -continue with home med: Amlodipine 10mg PO QD, Clonidine 0.2 mg PO BID, Hydralazine 25mg PO TID, adjusted HCTZ 25mg PO QD -ACEi not started due to possible adverse effect on pt's CKD -monitor BP Chronic Kidney Disease stage 3B (GFR 30-44 mL/min) -BUN/Cr 30/1.8 GFR 33, at baseline -d/c NS 1L at 125mls/hr -avoid nephrotoxic drugs Anemia -stable, chronic -secondary to anemia of chronic disease (CKD) Bilateral knee pain and LE weakness -stable, chronic -PT eval: continue PT, acute rehab recommended -Pain management: Lidoderm patch, Tylenol prn, Tramadol prn NIDDM -controlled, HbA1c 7.0 (11/25/16) -Hypoglycemia protocol -continue home meds: Glipizide 10 mg PO QD before breakfast, Glipizide 5mg PO ACD, Atorvastatin 40mg PO QD -Moderate carbohydrate/heart healthy diet, soft mechanical bite size -Humulin SC ACHS moderate dose protocol -lipids: Tri 162/chol 312/LDL 178/ HDL 47 DVT prophylaxis -Lovenox 30mg SC QD Discharge Disposition: PT recommends subacute rehab. I spoke with the Band Scroll Saw Operator she said she will try to find placement however given patient's insurance status discharge will be upon ability to go up and down stairs and subacute is not likely at this time.
[2017-01-11] MEDS: GlipiZIDE 10 mg SR Tab PO SCH (09:42)
[2017-01-11] MEDS: Enoxaparin 30 mg Syringe SC SCH (09:44)
[2017-01-11] MEDS: Insulin Regular 100 units/ml SC SCH ×4 (09:45→22:10)
[2017-01-11] MEDS: Lidocaine 5% Patch TD SCH (09:51)
[2017-01-11] MEDS: Docusate-Senna 50 mg-8.6 mg Tab PO SCH (21:06)
[2017-01-12] MEDS: Insulin Regular 100 units/ml SC SCH ×4 (06:33→22:17)
[2017-01-12] MEDS: GlipiZIDE 10 mg SR Tab PO SCH (09:02)
[2017-01-12] MEDS: Enoxaparin 30 mg Syringe SC SCH (09:02)
[2017-01-12] MEDS: Lidocaine 5% Patch TD SCH (09:03)
--- NOTE | 2017-01-12 11:34 | CP.PCM.PN ---
Subjective - Date & Time of Evaluation Date of Evaluation: 01/12/17 Time of Evaluation: 07:45 - Subjective Subjective: No acute events overnight. [facility]: #[id number] Amharic Patient is clinically improving. Has improvement of facial and RUE symptoms. She is tolerating her diet. Ambulating without assistance to and from the restroom. Otherwise no complaints presently. Objective - Vital Signs/Intake and Output Vital Signs (last 24 hours): Temp Pulse Resp BP Pulse Ox 98.4 F 55 L 20 148/80 99 01/12/17 08:03 01/12/17 09:03 01/12/17 08:03 01/12/17 09:03 01/12/17 08:03 - Medications Medications: Current Medications Acetaminophen (Tylenol 325mg Tab) 650 mg PO Q6 PRN PRN Reason: Pain, Mild (1-3) Last Admin: 01/08/17 03:12 Dose: 650 mg Amlodipine Besylate (Norvasc) 10 mg PO DAILY [facility] Last Admin: 01/12/17 09:02 Dose: 10 mg Atorvastatin Calcium (Lipitor) 40 mg PO DAILY [facility] Last Admin: 01/12/17 09:02 Dose: 40 mg Clonidine HCl (Catapres) 0.2 mg PO BID [facility] Last Admin: 01/12/17 09:03 Dose: 0.2 mg Clopidogrel Bisulfate (Plavix) 75 mg PO DAILY [facility] Last Admin: 01/11/17 09:44 Dose: 75 mg Enoxaparin Sodium (Lovenox) 30 mg SC DAILY [facility] PRN Reason: Protocol Last Admin: 01/12/17 09:02 Dose: 30 mg Folic Acid (Folic Acid) 1 mg PO DAILY [facility] Last Admin: 01/12/17 09:01 Dose: 1 mg Glipizide (Glucotrol) 5 mg PO QPM [facility] Last Admin: 01/11/17 19:53 Dose: 5 mg Glipizide (Glucotrol Xl) 10 mg PO QAM [facility] Last Admin: 01/12/17 09:02 Dose: 10 mg Hydralazine HCl (Apresoline) 25 mg PO TID [facility] Last Admin: 01/12/17 09:01 Dose: 25 mg Hydrochlorothiazide (Hydrodiuril) 25 mg PO DAILY [facility] Last Admin: 01/12/17 09:02 Dose: 25 mg Insulin Human Regular (Humulin R) 0 units SC ACHS [facility] PRN Reason: Protocol Last Admin: 01/12/17 06:33 Dose: 3 unit Lidocaine (Lidoderm) 2 ea TD DAILY [facility] Last Admin: 01/12/17 09:03 Dose: 2 ea Senna/Docusate Sodium (Senokot S 50 Mg-8.6 Mg) 2 tab PO HS [facility] Last Admin: 01/11/17 21:06 Dose: 2 tab Tramadol HCl (Ultram) 50 mg PO Q4 PRN PRN Reason: Pain, moderate (4-7) Last Admin: 01/10/17 09:02 Dose: 50 mg - Labs Labs: 01/07/17 06:00 PT 11.0 Seconds (9.8-13.1) 01/06/17 13:30 INR 1.0 (0.9-1.2) 01/06/17 13:30 APTT 31.3 Seconds (25.6-37.1) 01/06/17 13:30 - Constitutional Appears: No Acute Distress (mild right facial drooping) - Eye Exam Eye Exam: Normal appearance - ENT Exam ENT Exam: Mucous Membranes Moist - Neck Exam Neck Exam: Full ROM - Respiratory Exam Respiratory Exam: NORMAL BREATHING PATTERN - Cardiovascular Exam Cardiovascular Exam: REGULAR RHYTHM - GI/Abdominal Exam GI & Abdominal Exam: Soft. absent: Distended, Tenderness - Neurological Exam Neurological Exam: Alert, Awake, Motor Sensory Deficit (mild drooping with smiling of right mouth, able to puff cheeks out, RUE 4/5 strength, LUE 5/5 strength.) - Skin Skin Exam: Dry, Intact, Warm Assessment and Plan - Assessment and Plan (Free Text) Assessment: 71 yo F admitted for Acute CVA with lacunar infarct of the wilson radiata. The patient has been receiving PT and OT, she has had significant improvement of her symptoms. She is ambulating without assistance. Complains of chronic knee pain while ambulating but is otherwise doing well. Patient declined PT/OT yesterday due to interruption of prayer time. PT will try again today. Plan: Acute CVA -right facial droop and RUE weakness, improving -MRI Head: findings compatible with a 9mm acute lacunar infarct in the left wilson radiata -Neurology consult appreciated-Dr. Shane: will follow recommendations -continue Plavix 75mg PO QD -continue with PT/OT Hypertension -controlled, chronic -continue with home med: Amlodipine 10mg PO QD, Clonidine 0.2 mg PO BID, Hydralazine 25mg PO TID, adjusted HCTZ 25mg PO QD -ACEi not started due to possible adverse effect on pt's CKD -monitor BP Chronic Kidney Disease stage 3B -(GFR 30-44 mL/min) -BUN/Cr 30/1.8 GFR 33, at baseline -avoid nephrotoxic drugs Anemia -stable, chronic -secondary to anemia of chronic disease (CKD) Bilateral knee pain and LE weakness -stable, chronic -PT eval: continue PT, acute rehab recommended -Pain management: Lidoderm patch, Tylenol prn, Tramadol prn NIDDM -controlled, HbA1c 7.0 (11/25/16) -Hypoglycemia protocol -continue home meds: Glipizide 10 mg PO QD before breakfast, Glipizide 5mg PO ACD, Atorvastatin 40mg PO QD -Moderate carbohydrate/heart healthy diet, soft mechanical bite size -Humulin SC ACHS moderate dose protocol -lipids: Tri 162/chol 312/LDL 178/ HDL 47 DVT prophylaxis -Lovenox 30mg SC QD
[2017-01-12] MEDS: Docusate-Senna 50 mg-8.6 mg Tab PO SCH (21:02)
[2017-01-13 05:05] VITALS: O2SAT 100
[2017-01-13 06:35] LABS: HEMATOCRIT 31.5 % (34.0-47.0); MEAN CELL VOLUME 86.9 fl (81.0-99.0); MEAN CORPUSCULAR HGB CONC 33.4 g/dL (33.0-37.0); RED CELL DISTRIBUTION WIDTH 14.1 % (11.5-14.5); WHITE BLOOD COUNT 5.5 K/uL (4.8-10.8)
[2017-01-13] MEDS: Insulin Regular 100 units/ml SC SCH ×2 (06:42→12:59)
[2017-01-13 06:54] LABS: CALCIUM 9.3 mg/dL (8.4-10.2); POTASSIUM 3.5 MMOL/L (3.6-5.0)
[2017-01-13 08:28] VITALS: RESP 18
[2017-01-13] MEDS: GlipiZIDE 10 mg SR Tab PO SCH (09:20)
[2017-01-13] MEDS: Lidocaine 5% Patch TD SCH (09:21)
[2017-01-13] MEDS: Enoxaparin 30 mg Syringe SC SCH (09:27)
--- NOTE | 2017-01-13 09:55 | CP.PCM.DIS ---
Provider - Provider Date of Admission: 01/06/17 14:43 Attending physician: Lisa Luong MD Time Spent in preparation of Discharge (in minutes): 35 Diagnosis - Discharge Diagnosis (1) CVA (cerebral vascular accident) Status: Acute Comment: Improved since admission. Will continue to need outpatient PT. Rx given for PT. Atorvastatin 40mg PO QD (2) Hypertension Status: Chronic Comment: chronic, continue with amlodipine 10mg qD, Clonidine 0.2mg BID, Hydralazine 25mg PO TID, adjusted HCTZ 25mg PO QD. ACEi not started due to possible adverse effect on pt's CKD (3) Diabetes Status: Chronic Comment: HbA1c 7.0 (11/25/16). Not controlled during this admission: discharge on Glipizide XL 20mg. (4) CKD (chronic kidney disease) stage 3, GFR 30-59 ml/min Status: Chronic Hospital Course - Lab Results Lab Results: Most Recent Lab Values WBC 5.5 K/uL (4.8-10.8) 01/13/17 06:10 RBC 3.62 Mil/uL (3.80-5.20) L 01/13/17 06:10 Hgb 10.5 g/dL (12.0-16.0) L 01/13/17 06:10 Hct 31.5 % (34.0-47.0) L 01/13/17 06:10 MCV 86.9 fl (81.0-99.0) 01/13/17 06:10 MCH 29.0 pg (27.0-31.0) 01/13/17 06:10 MCHC 33.4 g/dL (33.0-37.0) 01/13/17 06:10 RDW 14.1 % (11.5-14.5) 01/13/17 06:10 Plt Count 248 K/uL (130-400) 01/13/17 06:10 MPV 8.8 fl (7.2-11.7) 01/06/17 13:30 Neut % (Auto) 77.2 % (50.0-75.0) H 01/06/17 13:30 Lymph % (Auto) 14.5 % (20.0-40.0) L 01/06/17 13:30 Bacon % (Auto) 6.1 % (0.0-10.0) 01/06/17 13:30 Eos % (Auto) 1.3 % (0.0-4.0) 01/06/17 13:30 Baso % (Auto) 0.9 % (0.0-2.0) 01/06/17 13:30 Neut # 5.6 K/uL (1.8-7.0) 01/06/17 13:30 Lymph # 1.1 K/uL (1.0-4.3) 01/06/17 13:30 Bacon # 0.4 K/uL (0.0-0.8) 01/06/17 13:30 Eos # 0.1 K/uL (0.0-0.7) 01/06/17 13:30 Baso # 0.1 K/uL (0.0-0.2) 01/06/17 13:30 ESR 47 mm/hr (0-30) H 01/07/17 06:00 PT 11.0 Seconds (9.8-13.1) 01/06/17 13:30 INR 1.0 (0.9-1.2) 01/06/17 13:30 APTT 31.3 Seconds (25.6-37.1) 01/06/17 13:30 Sodium 139 mmol/l (132-148) 01/13/17 06:10 Potassium 3.5 MMOL/L (3.6-5.0) L 01/13/17 06:10 Chloride 103 mmol/L (98-107) 01/13/17 06:10 Carbon Dioxide 26 mmol/L (22-30) 01/13/17 06:10 Anion Gap 14 (10-20) 01/13/17 06:10 BUN 46 mg/dl (7-17) H 01/13/17 06:10 Creatinine 2.3 mg/dL (0.7-1.2) H 01/13/17 06:10 Est GFR ( Amer) 01/13/17 06:10 Est GFR (Non-Af Amer) 01/13/17 06:10 POC Glucose (mg/dL) 238 mg/dL (65-110) H 01/13/17 05:27 Random Glucose 144 mg/dL (65-105) H 01/13/17 06:10 Calcium 9.3 mg/dL (8.4-10.2) 01/13/17 06:10 Total Bilirubin 0.5 mg/dl (0.2-1.3) 01/06/17 13:30 AST 25 U/L (14-36) 01/06/17 13:30 ALT 27 U/L (9-52) 01/06/17 13:30 Alkaline Phosphatase 81 U/L (38-126) 01/06/17 13:30 C-React Prot High Sens 2.12 mg/L (1.00-3.00) 01/07/17 06:00 Total Protein 7.4 G/DL (6.3-8.2) 01/06/17 13:30 Albumin 3.9 g/dL (3.5-5.0) 01/06/17 13:30 Globulin 3.6 gm/dL (2.2-3.9) 01/06/17 13:30 Albumin/Globulin Ratio 1.1 (1.0-2.1) 01/06/17 13:30 Triglycerides 129 mg/DL (0-149) D 01/07/17 16:00 Cholesterol 199 mg/dL (0-199) 01/07/17 16:00 LDL Cholesterol Direct 106 mg/dL (0-129) 01/07/17 16:00 HDL Cholesterol 44 MG/DL (30-70) 01/07/17 16:00 Vitamin B12 879 pg/mL (239-931) 01/07/17 06:00 Folate 5.4 ng/mL 01/07/17 06:00 Homocysteine 23.5 umol/L ( <10.4) H 01/07/17 06:00 TSH 3rd Generation 1.59 mIU/ML (0.46-4.68) 01/07/17 06:00 Prolactin 11.5 ng/mL (3.0-18.9) 01/07/17 06:00 - Hospital Course Hospital Course: 71 year old female admitted for CVA that began 5 days prior to admission affecting the right face and right upper extremity,found to have 9mm lacunar infarct in the left wilson radiata. Patients symptoms improved by day of discharge with PT/OT and she will continue with out patient PT. Glucotrol XL 20mg started in order to improve glycemic control, sugars not controlled on previous regimen. Discharge Exam - Head Exam Head Exam: ATRAUMATIC, NORMAL INSPECTION, NORMOCEPHALIC - Eye Exam Eye Exam: EOMI, Normal appearance, PERRL - ENT Exam ENT Exam: Mucous Membranes Moist - Respiratory Exam Respiratory Exam: Clear to PA & Lateral, NORMAL BREATHING PATTERN, UNREMARKABLE - Cardiovascular Exam Cardiovascular Exam: REGULAR RHYTHM, +S1, +S2 - GI/Abdominal Exam GI & Abdominal Exam: Normal Bowel Sounds, Soft. absent: Distended, Guarding, Tenderness - Extremities Exam Additional comments: no pitting edema. - Neurological Exam Neurological exam: Alert, Motor Sensory Deficit (right facial droop minimal, right upper extremity 4/5 strength, left upper extremity 5/5), Oriented x3 Additional comments: ambulates slowly secondary to chronic knee pain - Skin Skin Exam: Dry, Intact, Normal Color Discharge Plan - Discharge Medications Prescriptions: Atorvastatin [Lipitor] 40 mg PO DAILY #30 tab Clopidogrel [Plavix] 75 mg PO DAILY #30 tab GlipiZIDE SR [Glucotrol XL] 20 mg PO BRK #30 tab Hydrochlorothiazide [Microzide] 25 mg PO DAILY #30 cap amLODIPine [Norvasc] 10 mg PO DAILY #30 cloNIDine [Catapres] 0.2 mg PO BID #60 hydrALAZINE [Apresoline] 25 mg PO TID #90 traMADol [Ultram] 50 mg PO Q4 PRN #20 tab PRN Reason: Pain, Moderate (4-7) - Follow Up Plan Condition: GUARDED Disposition: HOME/ ROUTINE Instructions: Stroke (DC) Additional Instructions: [address] [phone] Xavier at 01/20/17 10:20 a.m.
[2017-01-13 12:32] VITALS: BP 121/76; TEMP 97.7
[2017-01-13 13:04] VITALS: PULSE 60
[2017-01-14] MEDS ORDERED: GlipiZIDE 10 mg SR Tab PO SCH (08:00)
== END 2017-01-13 14:30 | disposition home or self-care (01) | DRG 14 ==
LOC: H.ER 11:43 → H.ERHOLD 14:43 → H.TEL 17:32 → UNDODISIN 01-13 13:13
PROVIDERS: ADMIT Family Medicine Geriatric Medicine; ATTEND Family Medicine Geriatric Medicine
DX: I63.9 Cerebral infarction, unspecified (principal); E11.22 Type 2 diabetes mellitus with diabetic chronic kidney disease; G62.9 Polyneuropathy, unspecified; N18.3 Chronic kidney disease, stage 3 (moderate); E86.0 Dehydration; E87.6 Hypokalemia; G81.91 Hemiplegia, unspecified affecting right dominant side; Z68.42 Body mass index [BMI] 45.0-49.9, adult; D63.1 Anemia in chronic kidney disease; R29.810 Facial weakness; I25.10 Atherosclerotic heart disease of native coronary artery without angina pectoris; I12.9 Hypertensive chronic kidney disease with stage 1 through stage 4 chronic kidney disease, or unspecified chronic kidney disease; M10.9 Gout, unspecified; G89.29 Other chronic pain; E66.9 Obesity, unspecified

== ENCOUNTER 2017-02-27 12:05 | Emergency (ER) | payer SELFPAY ==
[2017-02-27 12:08] VITALS: TEMP 98; O2SAT 100; BMI 29.0
[2017-02-27] MEDS ORDERED: Oxycodone/Acetaminophen 5/325 mg Tab ONE (12:59)
[2017-02-27] MEDS ORDERED: Oxycodone/Acetaminophen 5/325 mg Tab PO STA (13:07)
[2017-02-27 13:32] LABS: BASO # 0.1 K/uL (0.0-0.2); BASO % 0.9 % (0.0-2.0); EOS % 0.3 % (0.0-4.0); HEMATOCRIT 34.5 % (34.0-47.0); LYMPH # 1.2 K/uL (1.0-4.3); LYMPH % 11.4 % (20.0-40.0); MEAN CELL VOLUME 86.2 fl (81.0-99.0); MEAN CORPUSCULAR HEMOGLOBIN 29.2 pg (27.0-31.0); MEAN CORPUSCULAR HGB CONC 33.8 g/dL (33.0-37.0); MEAN PLATELET VOLUME 8.1 fl (7.2-11.7); MONO # 1.1 K/uL (0.0-0.8); MONO % 10.2 % (0.0-10.0); NEUT % 77.2 % (50.0-75.0); NRBC % 0.1 % (0.0-0.0); RED CELL DISTRIBUTION WIDTH 14.8 % (11.5-14.5); WHITE BLOOD COUNT 10.4 K/uL (4.8-10.8)
[2017-02-27 14:06] LABS: CALCIUM 10.6 mg/dL (8.4-10.2); POTASSIUM 3.9 MMOL/L (3.6-5.0); URIC ACID 13.3 mg/Dl (2.2-7.5)
[2017-02-27] MEDS ORDERED: Sodium Chloride 0.9% 1,000 ML IV SCH (14:45)
[2017-02-27] MEDS ORDERED: methylPREDNISolone 60 MG in Sodium Chloride 0.9% 50 ML IVPB STA (14:46)
[2017-02-27 15:21] VITALS: BP 142/77; PULSE 74; RESP 14
--- NOTE | 2017-02-27 15:32 | ED PDOC ---
Lower Extremity Pain/Injury Time Seen by Provider: 02/27/17 12:10 Chief Complaint (Nursing): Lower Extremity Problem/Injury Chief Complaint (Provider): Left foot pain History Per: Patient History/Exam Limitations: no limitations Onset/Duration Of Symptoms: Days (x 1) Current Symptoms Are (Timing): Still Present Additional Complaint(s): Belinda Garcia is a 71 y/o female with past medical history of gout, who presents to the ED complaining of left foot pain and swelling consistent with gout, onset today. Symptoms worsen with weight bearing, improve with rest. No numbness, tingling, weakness, chest pain, or shortness of breath. Denies injury or trauma to foot. PMD: Unknown Past Medical History Reviewed: Historical Data, Nursing Documentation, Vital Signs Vital Signs: Last Vital Signs Temp 98.0 F 02/27/17 12:07 Pulse 74 02/27/17 15:10 Resp 14 02/27/17 15:10 BP 142/77 02/27/17 15:10 Pulse Ox 100 02/27/17 15:10 - Medical History PMH: Diabetes, HTN, Chronic Kidney Disease, TIA Other PMH: Gout - Surgical History Surgical History: Back Surgery - Family History Family History: States: Unknown Family Hx - Home Medications Home Medications: Ambulatory Orders Medication Instructions Recorded Atorvastatin [Lipitor] 40 mg PO DAILY #30 tab 01/13/17 Clopidogrel [Plavix] 75 mg PO DAILY #30 tab 01/13/17 GlipiZIDE SR [Glucotrol XL] 20 mg PO BRK #30 tab 01/13/17 Hydrochlorothiazide [Microzide] 25 mg PO DAILY #30 cap 01/13/17 amLODIPine [Norvasc] 10 mg PO DAILY #30 01/13/17 cloNIDine [Catapres] 0.2 mg PO BID #60 01/13/17 hydrALAZINE [Apresoline] 25 mg PO TID #90 01/13/17 traMADol [Ultram] 50 mg PO Q4 PRN #20 tab 01/13/17 Methylprednisolone [Medrol Dose 4 mg PO DAILY #21 mg 02/27/17 Pack (21 tabs)] oxyCODONE/Acetaminophen [Percocet 1 ea PO QID PRN #16 tab 02/27/17 5/325 mg Tab] - Allergies Allergies/Adverse Reactions: Allergies Allergy/AdvReac Type Severity Reaction Status Date / Time No Known Allergies Allergy Verified 11/24/16 11:38 Review of Systems ROS Statement: Except As Marked, All Systems Reviewed And Found Negative Constitutional: Negative for: Fever, Chills Cardiovascular: Negative for: Chest Pain Respiratory: Negative for: Shortness of Breath Musculoskeletal: Positive for: Foot Pain (Left) Neurological: Negative for: Weakness, Numbness (and tingling) Physical Exam - Reviewed Nursing Documentation Reviewed: Yes Vital Signs Reviewed: Yes - Physical Exam Appears: Positive for: No Acute Distress, Uncomfortable Head Exam: Positive for: ATRAUMATIC, NORMAL INSPECTION, NORMOCEPHALIC Skin: Positive for: Normal Color, Warm, Dry Eye Exam: Positive for: EOMI, Normal appearance, PERRL Neck: Positive for: Normal, Supple Cardiovascular/Chest: Positive for: Regular Rate, Rhythm. Negative for: Murmur Respiratory: Positive for: Normal Breath Sounds. Negative for: Accessory Muscle Use, Respiratory Distress Gastrointestinal/Abdominal: Positive for: Normal Exam, Soft. Negative for: Tenderness Back: Positive for: Normal Inspection. Negative for: L CVA Tenderness, R CVA Tenderness, Vertebral Tenderness Extremity: Positive for: Normal ROM, Swelling (mild swelling of left foot and ankle), Other (Foot neurovascularly intact). Negative for: Calf Tenderness Neurologic/Psych: Positive for: Alert, Oriented. Negative for: Motor/Sensory Deficits - Laboratory Results Result Diagrams: 02/27/17 13:22 02/27/17 13:22 - ECG O2 Sat by Pulse Oximetry: 100 (RA) Pulse Ox Interpretation: Normal - Other Rad X-Ray Left Foot X-Ray: Interpreted by Me, Viewed By Me X-Ray Interpretation: shows no fracture, dislocation, or soft tissue swelling. - Progress ED Course And Treament: Labs reviewed. Kidney function at baseline. Ultrasound negative. Medical Decision Making Medical Decision Making: Time: 12:44 Initial Plan: --CBC w/ differential --Uric acid --BMP --Given 2 tab Percocet PO --Pending X-Ray Left Foot --Added US Duplex Left Lower Extrm Vein Time: 14:45 --NS IV 1000 ml at 1000 mls/hr --Solu-medrol 60 mg IV --Prednisone 40 mg PO --Results of all studies were discussed with patient and family in detail. Time: 14:54 Clinical Impression: Gout due to renal impairment, left ankle and foot Upon provider evaluation patient is medically stable, and requires no further treatment in the ED at this time. Patient will be discharged with Rx for methylprednisolone and Percocet. Counseling was provided and all questions were answered regarding diagnosis and need for follow up with clinic. There is agreement to discharge plan. Return if symptoms persist or worsen. Scribe Attestation: Documented by Melanie Hanley, acting as a scribe for Desmond Mujica MD Provider Scribe Attestation: All medical record entries made by the Scribe were at my direction and personally dictated by me. I have reviewed the chart and agree that the record accurately reflects my personal performance of the history, physical exam, medical decision making, and the department course for this patient. I have also personally directed, reviewed, and agree with the discharge instructions and disposition. Disposition - Clinical Impression Clinical Impression: Gout due to renal impairment, left ankle and foot - Patient ED Disposition Is Patient to be Admitted: No Counseled Patient/Family Regarding: Studies Performed, Diagnosis, Need For Followup, Rx Given - Disposition Referrals: [facility] [Outside] (2 to 3 days) Disposition: Routine/Home Disposition Time: 14:54 Condition: STABLE Prescriptions: Methylprednisolone [Medrol Dose Pack (21 tabs)] 4 mg PO DAILY #21 mg oxyCODONE/Acetaminophen [Percocet 5/325 mg Tab] 1 ea PO QID PRN #16 tab PRN Reason: Pain, Moderate (4-7) Instructions: Gout (ED) Forms: [employer] (Malian)
--- NOTE | 2017-02-27 20:22 | US ---
EXAM: US Duplex Left Lower Extremity Veins CLINICAL HISTORY: 71 years old, female; Pain; Leg, lower; Left; Additional info: Pain and swelling TECHNIQUE: Real-time ultrasound scan of the veins of the left lower extremity with color Doppler flow, spectral waveform analysis and compression. COMPARISON: No relevant prior studies available. FINDINGS: Deep veins: Normal color and spectral Doppler flow. Normal compressibility. No deep vein thrombosis from common femoral to popliteal vein. Superficial veins: No thrombosis. Soft tissues: 5.0 x 1.0 x 1.9 cm hypoechoic lesion within popliteal fossa. IMPRESSION: 1. No evidence of DVT within LEFT lower extremity. 2. Probable Leone's cyst.
--- NOTE | 2017-02-27 22:35 | RAD ---
HISTORY: pain COMPARISON: No prior FINDINGS: BONES: Normal. No fracture. JOINTS: Normal. No osteoarthritis. SOFT TISSUE: Extensive dorsal soft tissue swelling. . OTHER FINDINGS: None . IMPRESSION: Extensive dorsal soft tissue swelling. .
== END 2017-02-27 15:28 | disposition home or self-care (01) ==
LOC: H.ER 12:05
DX: M10.30 Gout due to renal impairment, unspecified site (principal)

== ENCOUNTER 2017-03-18 11:06 | Emergency (ER) | payer SELFPAY ==
[2017-03-18 11:06] VITALS: BMI 29.0
--- NOTE | 2017-03-18 12:38 | ED PDOC ---
Lower Extremity Pain/Injury Time Seen by Provider: 03/18/17 11:35 Chief Complaint (Nursing): Lower Extremity Problem/Injury Chief Complaint (Provider): Lower extremity problem History Per: Patient History/Exam Limitations: no limitations Onset/Duration Of Symptoms: Days (x1) Current Symptoms Are (Timing): Still Present Additional Complaint(s): Belinda Garcia is a 71 year old female, with a past medical history of gout, who was brought to the emergency department by BLS complaining of bilateral foot pain onset since yesterday. Patient ambulates painfully and is not currently taking any gout medication. She denies any trauma, fever, paresthesia or weakness. No further medical complaints. PMD: None provided. Past Medical History Reviewed: Historical Data, Nursing Documentation, Vital Signs Vital Signs: Last Vital Signs Temp 99.3 F 03/18/17 11:11 Pulse 99 H 03/18/17 11:11 Resp 20 03/18/17 11:11 BP 159/84 H 03/18/17 11:11 Pulse Ox 100 03/18/17 11:11 - Medical History PMH: Diabetes, HTN, Chronic Kidney Disease, TIA - Surgical History Surgical History: Back Surgery - Family History Family History: States: Unknown Family Hx - Social History Current smoker - smoking cessation education provided: No Alcohol: None Drugs: Denies - Home Medications Home Medications: Ambulatory Orders Medication Instructions Recorded Atorvastatin [Lipitor] 40 mg PO DAILY #30 tab 01/13/17 Clopidogrel [Plavix] 75 mg PO DAILY #30 tab 01/13/17 GlipiZIDE SR [Glucotrol XL] 20 mg PO BRK #30 tab 01/13/17 Hydrochlorothiazide [Microzide] 25 mg PO DAILY #30 cap 01/13/17 amLODIPine [Norvasc] 10 mg PO DAILY #30 01/13/17 cloNIDine [Catapres] 0.2 mg PO BID #60 01/13/17 hydrALAZINE [Apresoline] 25 mg PO TID #90 01/13/17 traMADol [Ultram] 50 mg PO Q4 PRN #20 tab 01/13/17 Methylprednisolone [Medrol Dose 4 mg PO DAILY #21 mg 02/27/17 Pack (21 tabs)] oxyCODONE/Acetaminophen [Percocet 1 ea PO QID PRN #16 tab 02/27/17 5/325 mg Tab] Colchicine 0.6 mg PO TID #15 capsule 03/18/17 - Allergies Allergies/Adverse Reactions: Allergies Allergy/AdvReac Type Severity Reaction Status Date / Time No Known Allergies Allergy Verified 03/18/17 11:39 Review of Systems ROS Statement: Except As Marked, All Systems Reviewed And Found Negative Constitutional: Negative for: Fever, Other (trauma) Musculoskeletal: Positive for: Other (Painful ambulation) Neurological: Negative for: Weakness, Other (Paresthesia) Physical Exam - Reviewed Nursing Documentation Reviewed: Yes Vital Signs Reviewed: Yes - Physical Exam Appears: Positive for: Non-toxic Head Exam: Positive for: ATRAUMATIC, NORMAL INSPECTION, NORMOCEPHALIC Skin: Positive for: Normal Color, Warm, Dry Eye Exam: Positive for: EOMI, Normal appearance, PERRL Neck: Positive for: Normal, Painless ROM, Supple Cardiovascular/Chest: Positive for: Regular Rate, Rhythm. Negative for: Murmur Respiratory: Positive for: Normal Breath Sounds. Negative for: Respiratory Distress Gastrointestinal/Abdominal: Positive for: Normal Exam, Bowel Sounds, Soft. Negative for: Tenderness Extremity: Positive for: Tenderness (to generalized foot), Other (minimal erythema to 3rd right digit. ) Neurologic/Psych: Positive for: Alert, Oriented. Negative for: Motor/Sensory Deficits - Laboratory Results Result Diagrams: 03/18/17 12:58 03/18/17 12:58 - ECG O2 Sat by Pulse Oximetry: 100 (RA) Pulse Ox Interpretation: Normal Medical Decision Making Medical Decision Making: Initial Impression: Chronic foot pain Initial Plan: --Comp Metabolic Panel --Uric Acid --CBC w/ differential --Foot 3 views BI [RAD] --Morphine 2 mg IV --reevaluation 14:02 Bilateral feet x-ray reviewed. Findings noted as follows: BONES: Right Foot: Normal. No fracture. Left Foot: Normal. No fracture. JOINTS: Right Foot: Mild hallux valgus. Joint spaces and articular surfaces preserved. Left Foot: Mild hallux valgus. Joint spaces and articular surfaces preserved. SOFT TISSUES: Right Foot: Normal. Left Foot: Normal. OTHER FINDINGS: None. IMPRESSION: Mild bilateral hallux valgus. Otherwise unremarkable examination. Scribe Attestation: Documented by Efrain Henriquez, acting as a scribe for Jamilah Marx MD Provider Scribe Attestation: All medical record entries made by the Scribe were at my direction and personally dictated by me. I have reviewed the chart and agree that the record accurately reflects my personal performance of the history, physical exam, medical decision making, and the department course for this patient. I have also personally directed, reviewed, and agree with the discharge instructions and disposition. Disposition - Clinical Impression Clinical Impression: Gout - Disposition Referrals: [facility]ry [facility] [Outside] Monica Overton DPM [Staff Provider] - Disposition: Routine/Home Disposition Time: 14:53 Condition: STABLE Prescriptions: Colchicine 0.6 mg PO TID #15 capsule Instructions: Gout (ED) Forms: [employer] (Latvian)
[2017-03-18 13:08] LABS: BASO # 0.1 K/uL (0.0-0.2); BASO % 0.6 % (0.0-2.0); EOS # 0.1 K/uL (0.0-0.7); EOS % 0.9 % (0.0-4.0); HEMATOCRIT 33.3 % (34.0-47.0); LYMPH # 0.9 K/uL (1.0-4.3); LYMPH % 8.5 % (20.0-40.0); MEAN CELL VOLUME 86.6 fl (81.0-99.0); MEAN CORPUSCULAR HEMOGLOBIN 28.6 pg (27.0-31.0); MEAN PLATELET VOLUME 8.8 fl (7.2-11.7); MONO # 0.7 K/uL (0.0-0.8); MONO % 6.7 % (0.0-10.0); NEUT # 8.6 K/uL (1.8-7.0); NEUT % 83.3 % (50.0-75.0); NRBC % 0.1 % (0.0-0.0); PLATELET COUNT 299 K/uL (130-400); RED CELL DISTRIBUTION WIDTH 14.8 % (11.5-14.5); WHITE BLOOD COUNT 10.3 K/uL (4.8-10.8)
[2017-03-18 13:17] LABS: ALB/GLOB RATIO 1.1 (1.0-2.1); BILIRUBIN,TOTAL 0.6 mg/dl (0.2-1.3); CALCIUM 10.3 mg/dL (8.4-10.2); POTASSIUM 3.5 MMOL/L (3.6-5.0); TOTAL PROTEIN 7.9 G/DL (6.3-8.2); URIC ACID 11.7 mg/Dl (2.2-7.5)
[2017-03-18] MEDS ORDERED: Potassium Chloride 20 mEq ER Tab PO STA (13:33)
--- NOTE | 2017-03-18 14:08 | RAD ---
PROCEDURE: Bilateral Feet Radiographs. HISTORY: Bilateral foot pain COMPARISON: None. FINDINGS: BONES: Right Foot: Normal. No fracture. Left Foot: Normal. No fracture. JOINTS: Right Foot: Mild hallux valgus. Joint spaces and articular surfaces preserved. Left Foot: Mild hallux valgus. Joint spaces and articular surfaces preserved. SOFT TISSUES: Right Foot: Normal. Left Foot: Normal. OTHER FINDINGS: None. IMPRESSION: Mild bilateral hallux valgus. Otherwise unremarkable examination.
[2017-03-18 14:15] LABS: BASOPHIL 1 % (0-2); EOSINOPHIL 1 % (0-7); NEUTROPHIL 83 % (42-75); TOTAL CELLS COUNTED 100
[2017-03-18] MEDS ORDERED: Potassium Chloride 20 mEq ER Tab PO ONE (14:40)
--- NOTE | 2017-03-18 15:28 | CP.PCM.CON ---
History of Present Illness - History of Present Illness History of Present Illness: Podiatry Consult Note - Dr. Overton 71 year old female PMHx gout, DM, HTN, chronic kidney disease, TIA seen in ED complaining of bilateral lower extremity pain. Patient is accompanied by son at bedside. HPI obtained by son. Per patient's son, patient reports pain to both legs which first started last night. Patient reports 9/10 constant burning pain and increased sensitivity to touch. Patient denies any trauma. Patient admits to having gout for the past few years, but is not currently taking any gout medication. Patient is visiting from [place] and son does not know if she was ever prescribed any medications for gout while back in [place]. Patient admits to taking several pain medications daily, but has not taken anything today for alleviation of symptoms. Patient denies N/V/F/D/C/SOB. No other pedal complaints at this time. Review of Systems - Review of Systems All systems: reviewed and no additional remarkable complaints except (as per HPI ) Past Patient History - Past Medical History & Family History Past Medical History?: Yes - Past Social History Alcohol: None Drugs: Denies - CARDIAC Hx Hypertension: Yes - PULMONARY Hx Respiratory Disorders: No - NEUROLOGICAL Hx Transient Ischemic Attacks (TIA): Yes - HEENT Hx HEENT Problems: No - RENAL Hx Chronic Kidney Disease: Yes - ENDOCRINE/METABOLIC Hx Endocrine Disorders: Yes Hx Diabetes Mellitus Type 2: Yes - HEMATOLOGICAL/ONCOLOGICAL Hx Blood Disorders: No - INTEGUMENTARY Hx Dermatological Problems: No - MUSCULOSKELETAL/RHEUMATOLOGICAL Hx Musculoskeletal Disorders: Yes Hx Back Pain: Yes Hx Unsteady Gait: Yes (ambulates with walker@[email or web address]) Other/Comment: Gout - GASTROINTESTINAL Hx Gastrointestinal Disorders: No - GENITOURINARY/GYNECOLOGICAL Hx Genitourinary Disorders: No - PSYCHIATRIC Hx Psychophysiologic Disorder: No Hx Substance Use: No - SURGICAL HISTORY Hx Surgeries: Yes - ANESTHESIA Hx Anesthesia: Yes Hx Anesthesia Reactions: No Hx Malignant Hyperthermia: No Meds Home Medications: Home Medication List Medication Instructions Recorded Confirmed Type Colchicine 0.6 mg PO TID #15 capsule 03/18/17 Rx Allergies/Adverse Reactions: Allergies Allergy/AdvReac Type Severity Reaction Status Date / Time No Known Allergies Allergy Verified 03/18/17 11:39 Physical Exam - Constitutional Appears: Well, Non-toxic, No Acute Distress - Extremities Exam Additional comments: VASC: DP pulses palpable 2/4 b/l. PT pulses palpable 1/4 b/l. CFT <3 seconds to all digits x10. TG warm to warm b/l. Nonpitting perimalleolar edema noted. NEURO: Gross sensation intact bilaterally. Hyperesthesia to 1st MPJ b/l, forefoot b/l, ankle joint b/l. DERM: No open lesions, ecchymosis, or erythema noted b/l. ORTHO: Pain on palpation 1st MPJ b/l, forefoot b/l, ankle joint b/l, lower leg circumfirentially b/l. - Neurological Exam Neurological exam: Alert, Oriented x3 - Psychiatric Exam Psychiatric exam: Normal Affect, Normal Mood Results - Vital Signs Recent Vital Signs: Last Vital Signs Temp 99.3 F 03/18/17 11:11 Pulse 87 03/18/17 13:11 Resp 15 03/18/17 13:11 BP 159/84 H 03/18/17 11:11 Pulse Ox 100 03/18/17 14:40 - Labs Result Diagrams: 03/18/17 12:58 03/18/17 12:58 Labs: Laboratory Results - last 24 hr 03/18/17 03/18/17 12:58 12:58 WBC 10.3 RBC 3.84 Hgb 11.0 L Hct 33.3 L MCV 86.6 MCH 28.6 MCHC 33.0 RDW 14.8 H Plt Count 299 MPV 8.8 Neut % (Auto) 83.3 H Lymph % (Auto) 8.5 L Mchenry % (Auto) 6.7 Eos % (Auto) 0.9 Baso % (Auto) 0.6 Neut # 8.6 H Lymph # 0.9 L Mchenry # 0.7 Eos # 0.1 Baso # 0.1 Neutrophils % (Manual) 83 H Lymphocytes % (Manual) 10 L Monocytes % (Manual) 5 Eosinophils % (Manual) 1 Basophils % (Manual) 1 Toxic Granulation Present Platelet Estimate Normal Hypochromasia (manual) Slight Anisocytosis (manual) Slight Sodium 147 Potassium 3.5 L Chloride 103 Carbon Dioxide 28 Anion Gap 20 BUN 35 H Creatinine 1.8 H Est GFR ( Amer) 33 Est GFR (Non-Af Amer) 28 Random Glucose 165 H Uric Acid 11.7 H Calcium 10.3 H Total Bilirubin 0.6 AST 39 H ALT 23 Alkaline Phosphatase 80 Total Protein 7.9 Albumin 4.2 Globulin 3.7 Albumin/Globulin Ratio 1.1 Assessment & Plan - Assessment and Plan (Free Text) Assessment: 71 year old female PMHX gout, diabetes, HTN, chronic kidney disease, TIA with bilateral LE pain likely 2/2 gouty attack Plan: Patient seen and evaluated at bedside Discussed with attending, Dr. Overton Chart, vitals, labs reviewed = afebrile, WBC WNL @ 10.3, uric acid 11.7 Recommend cortisone injection; patient and patient's son deny treatment at this time Rx Colchicine 0.6 mg PO TID for 5 days Follow up with Dr. Overton in [facility] next Wednesday for follow up care Stable per podiatry standpoint Thank you for this consult, please reconsult podiatry as needed
[2017-03-18 15:53] VITALS: BP 145/62; PULSE 82; RESP 18; TEMP 98.1
[2017-03-23 20:13] VITALS: O2SAT 100
== END 2017-03-18 15:52 | disposition home or self-care (01) ==
LOC: H.ER 11:06
DX: M10.9 Gout, unspecified (principal); E11.9 Type 2 diabetes mellitus without complications; I10 Essential (primary) hypertension; I12.9 Hypertensive chronic kidney disease with stage 1 through stage 4 chronic kidney disease, or unspecified chronic kidney disease
CPT/HCPCS: 73630; 80053; 84550; 85025; 96374; 99284; J2270